=== PATIENT | male | born 1990 | race Caucasian/White ===

== ENCOUNTER 2017-04-03 04:55 | Emergency (ER) | payer MEDICAID ==
[~2017-04-03] VITALS: Ht 170.2 cm; Wt 118.3 kg
[~2017-04-03 04:55] MED LIST: HYDR-3240 PO; ONDA4TAB10 PO
[2017-04-03 05:00] VITALS: BP 141/91
[2017-04-03] MEDS ORDERED: PROM25SU34 RC (06:19)
[2017-04-03] MEDS ORDERED: HYDROcodone/APAP 5/325 TABLET PO ONE (06:30)
[2017-04-03] MEDS ORDERED: HYDROcodone/APAP 5/325 TABLET ONE (06:53)
[2017-04-03] MEDS ORDERED: METHYLNALTREXONE 12 MG/0.6 ML SQ ONE (08:30)
== END 2017-04-03 08:18 | disposition home or self-care (01) ==
LOC: ED 08:06
DX: S40.012A Contusion of left shoulder, initial encounter (principal); X58.XXXA Exposure to other specified factors, initial encounter; Y93.89 Activity, other specified; Y92.89 Other specified places as the place of occurrence of the external cause; Y99.8 Other external cause status
CPT/HCPCS: 99284

== ENCOUNTER 2017-04-03 23:55 | Emergency (ER) | payer MEDICAID ==
[~2017-04-03] VITALS: Ht 170.2 cm; Wt 117.9 kg
[~2017-04-03 23:55] MED LIST changes: +PROM25SU34 RC
[2017-04-04] VITALS: BP 140/90
[2017-04-04] MEDS ORDERED: HYDROcodone/APAP 5/325 TABLET ONE (01:14)
[2017-04-04] MEDS ORDERED: HYDROcodone/APAP 5/325 TABLET PO ONE (01:30)
== END 2017-04-04 01:44 | disposition home or self-care (01) ==
LOC: ED 04-04 01:09
DX: S46.012A Strain of muscle(s) and tendon(s) of the rotator cuff of left shoulder, initial encounter (principal); W01.0XXA Fall on same level from slipping, tripping and stumbling without subsequent striking against object, initial encounter; Y93.89 Activity, other specified; Y92.009 Unspecified place in unspecified non-institutional (private) residence as the place of occurrence of the external cause; Y99.8 Other external cause status; Z87.440 Personal history of urinary (tract) infections
CPT/HCPCS: 99282

== ENCOUNTER 2017-05-24 01:40 | Emergency (ER) | payer MEDICAID ==
[~2017-05-24] VITALS: Ht 170.2 cm; Wt 120.0 kg
[2017-05-24 01:41] VITALS: BP 147/77
[2017-05-24] MEDS ORDERED: OXYcodone/APAP 5/325MG TABLET PO ONE (03:00)
[2017-05-24] MEDS ORDERED: KETOROLAC 30 MG/1 ML IM ONE (03:00)
[2017-05-24] MEDS ORDERED: OXYcodone/APAP 5/325MG TABLET ONE (03:14)
[2017-05-24] MEDS ORDERED: KETOROLAC 30 MG/1 ML ONE (03:14)
== END 2017-05-24 03:27 | disposition home or self-care (01) ==
LOC: ED 03:19
DX: R68.84 Jaw pain (principal); K08.89 Other specified disorders of teeth and supporting structures; F17.220 Nicotine dependence, chewing tobacco, uncomplicated
CPT/HCPCS: 96372; 99283; J1885

== ENCOUNTER 2017-06-22 02:27 | Emergency (ER) | payer MEDICAID ==
[~2017-06-22] VITALS: Ht 170.2 cm; Wt 116.9 kg
[2017-06-22] MEDS ORDERED: HYDROmorphone 1 MG/ML, 1ML IM ONE (03:30)
[2017-06-22] MEDS ORDERED: ONDANSETRON ODT 4 MG PO ONE (03:30)
[2017-06-22] MEDS ORDERED: HYDROmorphone 1 MG/ML, 1ML ONE (03:45)
[2017-06-22] MEDS ORDERED: ONDANSETRON ODT 4 MG ONE (03:45)
[2017-06-22 03:50] LABS: ASPARTATE AMINO TRANSFERASE 43 U/L (15-37); BLOOD UREA NITROGEN 8 mg/dL (7-18)
[2017-06-22] MEDS ORDERED: DICYCLOMINE 10 MG/ML, 2ML IM ONE (04:30)
[2017-06-22 04:40] VITALS: BP 133/87
== END 2017-06-22 04:42 | disposition home or self-care (01) ==
LOC: ED 04:37
DX: R10.84 Generalized abdominal pain (principal); K43.9 Ventral hernia without obstruction or gangrene; R11.0 Nausea; R19.7 Diarrhea, unspecified; Z90.49 Acquired absence of other specified parts of digestive tract
CPT/HCPCS: 36415; 74020; 80053; 83690; 85025; 96372; 99285; J1170; Q0162

== ENCOUNTER 2017-06-27 00:30 | Emergency (ER) | payer MEDICAID ==
[~2017-06-27] VITALS: Ht 170.2 cm; Wt 117.6 kg
[2017-06-27] MEDS ORDERED: HYDR-3240 PO (01:30)
[2017-06-27] MEDS ORDERED: OXYcodone/APAP 5/325MG TABLET PO ONE (02:00)
[2017-06-27 02:01] LABS: ASPARTATE AMINO TRANSFERASE 25 U/L (15-37); BLOOD UREA NITROGEN 15 mg/dL (7-18)
[2017-06-27] MEDS ORDERED: OXYcodone/APAP 5/325MG TABLET ONE (02:17)
[2017-06-27 03:57] VITALS: BP 134/88
== END 2017-06-27 04:01 | disposition home or self-care (01) ==
LOC: ED 01:23
DX: G89.29 Other chronic pain (principal); R10.84 Generalized abdominal pain; Z90.49 Acquired absence of other specified parts of digestive tract
CPT/HCPCS: 36415; 74176; 80053; 81003; 83690; 85025; 99285

== ENCOUNTER 2017-08-10 04:02 | Emergency (ER) | payer MEDICAID ==
[~2017-08-10] VITALS: Ht 170.2 cm; Wt 113.7 kg
[2017-08-10] MEDS ORDERED: ONDANSETRON 2MG/ML, 2ML ONE ×4 (05:16→07:46)
[2017-08-10] MEDS ORDERED: MORPHINE SULFATE 4 MG/ML, 1ML ONE (05:16)
[2017-08-10] MEDS ORDERED: ONDANSETRON 2MG/ML, 2ML IVPush ONE ×2 (05:30→07:00)
[2017-08-10] MEDS ORDERED: SODIUM CHLORIDE 0.9% 1,000ML IVBOLUS ONE (05:30)
[2017-08-10] MEDS ORDERED: MORPHINE SULFATE 4 MG/ML, 1ML IVPush PRN (05:30)
[2017-08-10] MEDS ORDERED: SODIUM CHLORIDE FLUSH 10ML SYR IVF ONE (05:30)
[2017-08-10] MEDS ORDERED: FENTANYL PF 100 MCG/2ML ONE (05:37)
[2017-08-10 05:56] LABS: HEMATOCRIT 42.7 % (39.2-51.8); HEMOGLOBIN 14.4 g/dL (13.7-18.0); WHITE BLOOD COUNT 11.1 x10^3/uL (3.4-10)
[2017-08-10] MEDS ORDERED: FENTANYL PF 100 MCG/2ML IVPush ONE (06:00)
[2017-08-10 06:08] LABS: BLOOD UREA NITROGEN 19 mg/dL (7-18)
[2017-08-10] MEDS ORDERED: OMNIPAQUE 350 MG/ML, 150 ML BOTTLE ONE (06:35)
[2017-08-10] MEDS ORDERED: HYDROmorphone 1 MG/ML, 1ML IV ONE (07:30)
[2017-08-10] MEDS ORDERED: HYDROmorphone 1 MG/ML, 1ML ONE (07:46)
[2017-08-10 07:50] VITALS: BP 133/91
== END 2017-08-10 07:53 | disposition home or self-care (01) ==
LOC: ED 05:37
DX: G89.29 Other chronic pain (principal); R10.84 Generalized abdominal pain; Z90.49 Acquired absence of other specified parts of digestive tract
CPT/HCPCS: 36415; 74177; 80048; 81003; 82040; 83605; 85025; 87040; 96361; 96374; 96375; 96376; 99285; J1170; J2405; J3010; J7030; Q9967

== ENCOUNTER 2017-09-13 06:06 | Emergency (ER) | payer MEDICAID ==
[~2017-09-13] VITALS: Ht 170.2 cm; Wt 116.7 kg
[2017-09-13] MEDS ORDERED: SODIUM CHLORIDE 0.9% 1,000 ML IV ONE (06:25)
[2017-09-13] MEDS ORDERED: SODIUM CHLORIDE 0.9% 1,000ML IVBOLUS ONE (06:30)
[2017-09-13] MEDS ORDERED: SODIUM CHLORIDE FLUSH 10ML SYR IVF ONE (06:30)
[2017-09-13] MEDS ORDERED: ONDANSETRON 2MG/ML, 2ML IVPush ONE (06:30)
[2017-09-13 06:51] LABS: HEMATOCRIT 44.9 % (39.2-51.8); HEMOGLOBIN 15.3 g/dL (13.7-18.0); WHITE BLOOD COUNT 11.2 x10^3/uL (3.4-10)
[2017-09-13] MEDS ORDERED: HYDROmorphone 1 MG/ML, 1ML ONE ×2 (06:57→07:40)
[2017-09-13] MEDS ORDERED: ONDANSETRON 2MG/ML, 2ML ONE (06:58)
[2017-09-13 07:03] LABS: ASPARTATE AMINO TRANSFERASE 19 U/L (15-37); BLOOD UREA NITROGEN 15 mg/dL (7-18)
[2017-09-13] MEDS: HYDROmorphone 1 MG/ML, 1ML IVPush PRN ×2 (07:17→07:41)
[2017-09-13] MEDS ORDERED: OMNIPAQUE 350 MG/ML, 150 ML BOTTLE ONE (08:02)
[2017-09-13 08:34] VITALS: BP 13/67
== END 2017-09-13 08:36 | disposition home or self-care (01) ==
LOC: ED 07:59
DX: R10.12 Left upper quadrant pain (principal); R11.0 Nausea; S31.139D Puncture wound of abdominal wall without foreign body, unspecified quadrant without penetration into peritoneal cavity, subsequent encounter; X58.XXXD Exposure to other specified factors, subsequent encounter
CPT/HCPCS: 36415; 74177; 80053; 83605; 83690; 85025; 93005; 96361; 96374; 96375; 99285; J1170; J2405; J7030; Q9967

== ENCOUNTER 2017-09-18 04:24 | Emergency (ER) | payer MEDICAID ==
[~2017-09-18] VITALS: Ht 170.2 cm; Wt 115.0 kg
[2017-09-18 04:27] VITALS: BP 131/91
[2017-09-18] MEDS ORDERED: SODIUM CHLORIDE 0.9% 1,000 ML IV ONE (05:16)
[2017-09-18 05:19] LABS: PATH.CAST-FLAG NOT PRESENT; SPERM-FLAG NOT PRESENT; SRC-FLAG NOT PRESENT; XTAL-FLAG NOT PRESENT; YLC-FLAG NOT PRESENT
[2017-09-18] MEDS ORDERED: ONDANSETRON 2MG/ML, 2ML IVPush ONE (05:30)
[2017-09-18] MEDS ORDERED: SODIUM CHLORIDE 0.9% 1,000ML IVBOLUS ONE (05:30)
[2017-09-18 06:01] LABS: HEMATOCRIT 49.5 % (39.2-51.8); HEMOGLOBIN 16.6 g/dL (13.7-18.0); WHITE BLOOD COUNT 13.6 x10^3/uL (3.4-10)
[2017-09-18 06:03] LABS: BLOOD UREA NITROGEN 13 mg/dL (7-18)
[2017-09-18 06:07] LABS: ASPARTATE AMINO TRANSFERASE 22 U/L (15-37)
[2017-09-18] MEDS ORDERED: ONDANSETRON 2MG/ML, 2ML ONE (06:16)
[2017-09-18] MEDS ORDERED: HYDROmorphone 1 MG/ML, 1ML ONE ×2 (06:16→07:50)
[2017-09-18] MEDS: HYDROmorphone 1 MG/ML, 1ML IVPush PRN ×2 (06:26→07:56)
== END 2017-09-18 08:31 | disposition home or self-care (01) ==
LOC: ED 08:20
DX: R10.12 Left upper quadrant pain (principal); R10.32 Left lower quadrant pain
CPT/HCPCS: 36415; 80053; 81001; 83690; 85025; 96361; 96374; 96375; 96376; 99284; J1170; J2405; J7030

== ENCOUNTER 2017-09-22 07:43 | Emergency (ER) | payer MEDICAID ==
[~2017-09-22] VITALS: Ht 170.2 cm; Wt 116.0 kg
[2017-09-22] MEDS ORDERED: ONDANSETRON 2MG/ML, 2ML ONE (08:22)
[2017-09-22] MEDS ORDERED: morphine SULFATE 10 MG/ML, 1ML ONE (08:22)
[2017-09-22] MEDS ORDERED: SODIUM CHLORIDE 0.9% 1,000ML IVBOLUS ONE (08:30)
[2017-09-22] MEDS ORDERED: ONDANSETRON 2MG/ML, 2ML IVPush ONE (08:30)
[2017-09-22] MEDS ORDERED: SODIUM CHLORIDE FLUSH 10ML SYR IVF ONE (08:30)
[2017-09-22] MEDS ORDERED: MORPHINE SULFATE 4 MG/ML, 1ML IVPush PRN (08:30)
[2017-09-22 08:49] LABS: HEMATOCRIT 46.4 % (39.2-51.8); HEMOGLOBIN 15.6 g/dL (13.7-18.0); WHITE BLOOD COUNT 13.6 x10^3/uL (3.4-10)
[2017-09-22 09:01] LABS: BLOOD UREA NITROGEN 14 mg/dL (7-18)
[2017-09-22] MEDS ORDERED: DIPHENHYDRAMINE 50 MG/ML, 1ML ONE (09:16)
[2017-09-22] MEDS ORDERED: HYDROmorphone 1 MG/ML, 1ML ONE ×2 (09:16→10:25)
[2017-09-22] MEDS ORDERED: METOCLOPRAMIDE 5 MG/ML, 2ML ONE (09:16)
[2017-09-22 09:22] VITALS: BP 135/86
[2017-09-22] MEDS ORDERED: HYDROmorphone 1 MG/ML, 1ML IVPush ONE (09:30)
[2017-09-22] MEDS ORDERED: METOCLOPRAMIDE 5 MG/ML, 2ML IVPush ONE (09:30)
[2017-09-22] MEDS ORDERED: DIPHENHYDRAMINE 50 MG/ML, 1ML IVPush ONE (09:30)
== END 2017-09-22 10:20 | disposition home or self-care (01) ==
LOC: ED 09:17
DX: G89.29 Other chronic pain (principal); R10.84 Generalized abdominal pain; F11.20 Opioid dependence, uncomplicated
CPT/HCPCS: 36415; 80048; 82040; 83605; 85025; 96361; 96374; 96375; 99284; J1170; J1200; J2405; J2765; J7030

== ENCOUNTER 2019-12-30 00:41 | Emergency (ER) | payer MEDICAID ==
[2019-12-30] MEDS ORDERED: ONDANSETRON ODT 4 MG ONE (01:12)
[2019-12-30] MEDS ORDERED: OXYcodone/APAP 5/325MG TABLET ONE ×2 (01:12→01:38)
[2019-12-30 01:15] LABS: BASOPHILS # (AUTO) 0.06 x10^3/uL (0-0.1); BASOPHILS % (AUTO) 1 % (0-1); EOSINOPHILS % (AUTO) 1 % (1-7); LYMPHOCYTES # (AUTO) 3.56 x10^3/uL (1-3.4); LYMPHOCYTES % (AUTO) 28 % (22-44); MD NO; MEAN CORPUSCULAR HEMOGLOBIN 27.9 pg (27.5-34.5); MEAN CORPUSCULAR HGB CONC 33.3 g/dL (33.2-36.2); MEAN CORPUSCULAR VOLUME 83.7 fL (81-97); MEAN PLATELET VOLUME 8.4 fL (7.4-10.4); MONOCYTES # (AUTO) 1.02 x10^3/uL (0.2-0.8); MONOCYTES % (AUTO) 8 % (2-9); NEUTROPHILS # (AUTO) 7.76 x10^3/uL (1.8-6.8); NEUTROPHILS % (AUTO) 62 % (42-75); PLATELET COUNT 275 x10^3/uL (130-400); RED CELL DISTRIBUTION WIDTH 14.5 % (9.4-14.8)
[2019-12-30 01:25] LABS: ALANINE AMINOTRANSFERASE 41 U/L (12-78); ALBUMIN 3.3 g/dL (3.4-5.0); ANION GAP 9 mmol/L (5-15); CALCIUM 9.2 mg/dL (8.5-10.1); CHLORIDE 109 mmol/L (98-107); CREATININE 1.16 mg/dL (0.7-1.3)
--- NOTE | 2019-12-30 01:26 | NUR ---
Patient presents to ER c/o right quadrant abd pain. Patient states this is chronic pain which he takes Percocet 10/325 for. Lately his pain has not been controlled by his RX so he's been taking more. He informed his pain management doc about this and they did not change his RX. Tonight, patient does not have anymore meds and is in pain and feels like he may be starting to go through withdrawals. His RX cannot be filled for another 7 days. Patient is in NAD. Respirations even and unlabored.
[2019-12-30 01:28] LABS: ALKALINE PHOSPHATASE 64 U/L (45-117); BILIRUBIN,TOTAL 0.4 mg/dL (0.2-1.0); TOTAL PROTEIN 8.3 g/dL (6.4-8.2)
[2019-12-30] MEDS ORDERED: OXYcodone/APAP 5/325MG TABLET PO ONE ×2 (01:30→02:00)
[2019-12-30] MEDS ORDERED: ONDANSETRON ODT 4 MG PO ONE (01:30)
[2019-12-30 02:19] VITALS: BP 118/83
== END 2019-12-30 02:23 | disposition home or self-care (01) ==
LOC: ED 01:11
DX: R10.84 Generalized abdominal pain (principal); R73.9 Hyperglycemia, unspecified; F15.93 Other stimulant use, unspecified with withdrawal; Z90.49 Acquired absence of other specified parts of digestive tract
CPT/HCPCS: 36415; 80053; 83690; 85025; 99284; Q0162

== ENCOUNTER 2020-01-06 04:43 | Emergency (ER) | payer MEDICAID ==
[~2020-01-06] VITALS: Ht 170.2 cm; Wt 126.0 kg
[2020-01-06] MEDS ORDERED: MAALOX/HYOSCYAMINE/LIDOCAINE 45 ML BTL ONE (05:26)
[2020-01-06] MEDS ORDERED: ONDANSETRON 2MG/ML, 2ML ONE (05:26)
[2020-01-06] MEDS ORDERED: FAMOTIDINE 20 MG/2 ML ONE (05:26)
[2020-01-06] MEDS ORDERED: ONDANSETRON 2MG/ML, 2ML IVPush ONE (05:30)
[2020-01-06] MEDS ORDERED: MAALOX/HYOSCYAMINE/LIDOCAINE 45 ML BTL PO ONE (05:30)
[2020-01-06] MEDS ORDERED: FAMOTIDINE 20 MG/2 ML IV ONE (05:30)
[2020-01-06] MEDS ORDERED: SODIUM CHLORIDE 0.9% 1,000ML IVBOLUS ONE (05:30)
[2020-01-06 06:15] LABS: ALANINE AMINOTRANSFERASE 45 U/L (12-78); ALBUMIN 3.4 g/dL (3.4-5.0); ANION GAP 8 mmol/L (5-15); CALCIUM 9.2 mg/dL (8.5-10.1); CHLORIDE 110 mmol/L (98-107); CREATININE 1.17 mg/dL (0.7-1.3)
[2020-01-06 06:17] LABS: ALKALINE PHOSPHATASE 64 U/L (45-117); BILIRUBIN,TOTAL 0.4 mg/dL (0.2-1.0); TOTAL PROTEIN 8.3 g/dL (6.4-8.2)
[2020-01-06 06:23] LABS: BASOPHILS # (AUTO) 0.05 x10^3/uL (0-0.1); BASOPHILS % (AUTO) 1 % (0-1); EOSINOPHILS % (AUTO) 1 % (1-7); LYMPHOCYTES # (AUTO) 2.15 x10^3/uL (1-3.4); LYMPHOCYTES % (AUTO) 26 % (22-44); MD NO; MEAN CORPUSCULAR HGB CONC 33.6 g/dL (33.2-36.2); MEAN CORPUSCULAR VOLUME 83.3 fL (81-97); MEAN PLATELET VOLUME 8.8 fL (7.4-10.4); MONOCYTES % (AUTO) 15 % (2-9); NEUTROPHILS # (AUTO) 4.73 x10^3/uL (1.8-6.8); NEUTROPHILS % (AUTO) 57 % (42-75); PLATELET COUNT 249 x10^3/uL (130-400); RED BLOOD COUNT 5.59 x10^6/uL (4.38-5.82); RED CELL DISTRIBUTION WIDTH 14.5 % (9.4-14.8)
--- NOTE | 2020-01-06 06:35 | NUR ---
PT LYING IN BED, RESTLESS. STATES GI COCKTAIL ONLY HELPED FOR [address] 3P ADDRESSED.
[2020-01-06] MEDS ORDERED: HYDROmorphone 1 MG/ML, 1ML INJ IV ONE (07:30)
[2020-01-06] MEDS ORDERED: HYDROmorphone 1 MG/ML, 1ML INJ ONE (07:44)
[2020-01-06 07:57] VITALS: BP 127/84
--- NOTE | 2020-01-06 07:58 | NUR ---
PT MEDICATED PER JAN, WILL MONITOR THEM DC PER ORDER
== END 2020-01-06 08:57 | disposition home or self-care (01) ==
LOC: ED 06:18
DX: R10.84 Generalized abdominal pain (principal); B34.9 Viral infection, unspecified; R11.2 Nausea with vomiting, unspecified; R19.7 Diarrhea, unspecified; R00.0 Tachycardia, unspecified; Z90.49 Acquired absence of other specified parts of digestive tract
CPT/HCPCS: 36415; 74022; 80053; 85025; 93005; 96361; 96374; 96375; 99284; J1170; J2405; J3490; J7030

== ENCOUNTER 2020-01-26 00:05 | Emergency (ER) | payer MEDICAID ==
[~2020-01-26] VITALS: Ht 170.2 cm; Wt 128.0 kg
[2020-01-26] MEDS ORDERED: MORPHINE SULFATE 4 MG/ML, 1ML IVPush PRN (01:00)
[2020-01-26] MEDS ORDERED: SODIUM CHLORIDE FLUSH 10ML SYR IVF ONE (01:00)
[2020-01-26] MEDS ORDERED: ONDANSETRON 2MG/ML, 2ML IVPush ONE (01:00)
[2020-01-26] MEDS ORDERED: MORPHINE SULFATE 4 MG/ML, 1ML ONE (01:04)
[2020-01-26] MEDS ORDERED: ONDANSETRON 2MG/ML, 2ML ONE (01:04)
[2020-01-26 01:05] LABS: BASOPHILS # (AUTO) 0.05 x10^3/uL (0-0.1); BASOPHILS % (AUTO) 1 % (0-1); EOSINOPHILS # (AUTO) 0.23 x10^3/uL (0-0.4); EOSINOPHILS % (AUTO) 2 % (1-7); LYMPHOCYTES # (AUTO) 3.46 x10^3/uL (1-3.4); LYMPHOCYTES % (AUTO) 33 % (22-44); MD NO; MEAN CORPUSCULAR HEMOGLOBIN 28.3 pg (27.5-34.5); MEAN CORPUSCULAR HGB CONC 33.9 g/dL (33.2-36.2); MEAN CORPUSCULAR VOLUME 83.4 fL (81-97); MEAN PLATELET VOLUME 8.8 fL (7.4-10.4); MONOCYTES # (AUTO) 0.89 x10^3/uL (0.2-0.8); MONOCYTES % (AUTO) 9 % (2-9); NEUTROPHILS # (AUTO) 5.83 x10^3/uL (1.8-6.8); NEUTROPHILS % (AUTO) 56 % (42-75); PLATELET COUNT 242 x10^3/uL (130-400); RED BLOOD COUNT 4.83 x10^6/uL (4.38-5.82); RED CELL DISTRIBUTION WIDTH 14.4 % (9.4-14.8)
[2020-01-26 01:15] LABS: ALBUMIN 2.6 g/dL (3.4-5.0); ANION GAP 5 mmol/L (5-15); CALCIUM 8.4 mg/dL (8.5-10.1); CHLORIDE 107 mmol/L (98-107); CREATININE 1.14 mg/dL (0.7-1.3)
--- NOTE | 2020-01-26 01:17 | NUR ---
IV ACCESS ESTABLISHED. PT MEDICATED PER JAN AT THIS TIME. DR HERNDON NOTIFIED OF PT ALLERGY TO MORPHINE AND MEDICATIONS WERE CHANGED AT THIS TIME.
[2020-01-26] MEDS ORDERED: KETOROLAC 30 MG/1 ML ONE (01:21)
--- NOTE | 2020-01-26 01:23 | NUR ---
PT MEDICATED PER MAR FOR PAIN.
[2020-01-26] MEDS ORDERED: KETOROLAC 30 MG/1 ML IVPush ONE (01:30)
[2020-01-26] MEDS ORDERED: OMNIPAQUE 350 MG/ML, 100ML BOTTLE ONE (01:42)
--- NOTE | 2020-01-26 01:42 | NUR ---
pt to ct via [facility] at this time.
[2020-01-26] MEDS ORDERED: LIDOCAINE 1%, 10ML INFIL ONE (02:30)
[2020-01-26] MEDS ORDERED: LIDOCAINE-MPF 1%, 5ML ONE (03:19)
[2020-01-26] MEDS ORDERED: HYDROmorphone 1 MG/ML, 1ML INJ ONE ×2 (03:21→04:06)
[2020-01-26] MEDS ORDERED: HYDROmorphone 2 MG/ML, 1ML IVPush PRN (03:30)
--- NOTE | 2020-01-26 04:15 | NUR ---
PT MEDICATED PER MAR. PT D/C WITH D/C SUMMARY AND SCRIPTS AND VERBALIZES UNDERSTANDING OF [facility] AND F/U INSTRUCTIONS. PT AMBULATES TO REGISTRATION DESK WITH STEADY GAIT FOR D/C HOME WITH FRIEND. VSS AND UPDATED IN EMR.
[2020-01-26 04:16] VITALS: BP 128/81
[2020-01-26] MEDS ORDERED: HYDROmorphone 1 MG/ML, 1ML INJ IM ONE (04:30)
== END 2020-01-26 04:18 | disposition home or self-care (01) ==
LOC: ED 01:48
DX: K61.0 Anal abscess (principal); L02.31 Cutaneous abscess of buttock; L03.317 Cellulitis of buttock; Z90.49 Acquired absence of other specified parts of digestive tract
CPT/HCPCS: 36415; 46050; 72193; 80048; 82040; 85025; 96372; 96374; 96375; 99285; J1170; J1885; J2405; Q9967

== ENCOUNTER 2020-01-31 00:41 | Emergency (ER) | payer MEDICAID ==
[~2020-01-31] VITALS: Ht 170.2 cm; Wt 128.2 kg
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
[2020-01-31] MEDS ORDERED: HYDROmorphone 1 MG/ML, 1ML INJ ONE (01:27)
[2020-01-31] MEDS ORDERED: ONDANSETRON 2MG/ML, 2ML ONE (01:28)
[2020-01-31] MEDS ORDERED: SODIUM CHLORIDE 0.9% 1,000ML IVBOLUS ONE (01:30)
[2020-01-31] MEDS ORDERED: SODIUM CHLORIDE FLUSH 10ML SYR IVF ONE (01:30)
[2020-01-31] MEDS ORDERED: ONDANSETRON 2MG/ML, 2ML IVPush ONE (01:30)
[2020-01-31] MEDS ORDERED: HYDROmorphone 1 MG/ML, 1ML INJ IM ONE (01:30)
[2020-01-31 01:42] LABS: BASOPHILS # (AUTO) 0.06 x10^3/uL (0-0.1); BASOPHILS % (AUTO) 1 % (0-1); EOSINOPHILS # (AUTO) 0.22 x10^3/uL (0-0.4); EOSINOPHILS % (AUTO) 2 % (1-7); LYMPHOCYTES # (AUTO) 4.49 x10^3/uL (1-3.4); LYMPHOCYTES % (AUTO) 34 % (22-44); MD NO; MEAN CORPUSCULAR HEMOGLOBIN 28.2 pg (27.5-34.5); MEAN CORPUSCULAR HGB CONC 33.9 g/dL (33.2-36.2); MEAN CORPUSCULAR VOLUME 83.2 fL (81-97); MEAN PLATELET VOLUME 8.5 fL (7.4-10.4); MONOCYTES # (AUTO) 1.26 x10^3/uL (0.2-0.8); MONOCYTES % (AUTO) 10 % (2-9); NEUTROPHILS % (AUTO) 54 % (42-75); PLATELET COUNT 313 x10^3/uL (130-400); RED BLOOD COUNT 5.09 x10^6/uL (4.38-5.82); RED CELL DISTRIBUTION WIDTH 14.2 % (9.4-14.8)
[2020-01-31 01:50] LABS: ALANINE AMINOTRANSFERASE 34 U/L (12-78); ANION GAP 7 mmol/L (5-15); CALCIUM 8.9 mg/dL (8.5-10.1); CHLORIDE 103 mmol/L (98-107)
[2020-01-31 01:53] LABS: ALKALINE PHOSPHATASE 69 U/L (45-117); BILIRUBIN,TOTAL 0.2 mg/dL (0.2-1.0); CREATININE 0.97 mg/dL (0.7-1.3)
[2020-01-31] MEDS ORDERED: HYDROmorphone 1 MG/ML, 1ML INJ IV ONE (02:00)
[2020-01-31] MEDS ORDERED: KETOROLAC 30 MG/1 ML IVPush ONE (02:30)
--- NOTE | 2020-01-31 02:31 | NUR ---
PT REQUESTED ADDITIONAL PAIN MEDS, MD NOTIFIED. PT OFFERED TORADOL, PT REFUSED STATES "ONLY DILAUDID AND PERCOCET WORK FOR ME".
[2020-01-31 02:32] VITALS: BP 116/73
[2020-02-01] MEDS ORDERED: OXYC-307 PO (01:48)
== END 2020-01-31 02:46 | disposition home or self-care (01) ==
LOC: ED 02:08
DX: K61.1 Rectal abscess (principal); F11.23 Opioid dependence with withdrawal; R73.9 Hyperglycemia, unspecified; G89.29 Other chronic pain; Z90.49 Acquired absence of other specified parts of digestive tract
CPT/HCPCS: 36415; 72192; 80053; 83605; 84145; 85025; 87040; 96374; 96375; 99284; J1170; J2405; J7030

== ENCOUNTER 2020-02-01 00:34 | Emergency (ER) | payer MEDICAID ==
[~2020-02-01] VITALS: Ht 170.2 cm; Wt 127.5 kg
[2020-02-01] MEDS ORDERED: OXYC-307 PO (01:48)
--- NOTE | 2020-02-01 01:52 | NUR ---
Pt ambulatory to room. Pt reports being followed by pain management MD and is prescribed percocet for pain. Pt reports a recent abd abscess for which he took an increased number of percocet and is now out. Pt reports feeling withdrawal symptoms. Pt reports he his not due for his refill until 02/01. Pt reports other meds for weight loss, and sleeping. Call light in place. Report to primary RN Nicolas.
[2020-02-01] MEDS ORDERED: OXYcodone/APAP 5/325MG TABLET ONE ×2 (02:12→04:28)
[2020-02-01] MEDS ORDERED: OXYcodone/APAP 5/325MG TABLET PO ONE ×2 (02:30→04:30)
[2020-02-01 02:53] LABS: BASOPHILS # (AUTO) 0.11 x10^3/uL (0-0.1); BASOPHILS % (AUTO) 1 % (0-1); EOSINOPHILS # (AUTO) 0.25 x10^3/uL (0-0.4); EOSINOPHILS % (AUTO) 2 % (1-7); LYMPHOCYTES # (AUTO) 4.11 x10^3/uL (1-3.4); LYMPHOCYTES % (AUTO) 31 % (22-44); MD NO; MEAN CORPUSCULAR HGB CONC 33.2 g/dL (33.2-36.2); MEAN CORPUSCULAR VOLUME 84.1 fL (81-97); MEAN PLATELET VOLUME 8.2 fL (7.4-10.4); MONOCYTES # (AUTO) 1.11 x10^3/uL (0.2-0.8); MONOCYTES % (AUTO) 8 % (2-9); NEUTROPHILS # (AUTO) 7.61 x10^3/uL (1.8-6.8); NEUTROPHILS % (AUTO) 58 % (42-75); PLATELET COUNT 293 x10^3/uL (130-400); RED CELL DISTRIBUTION WIDTH 14.1 % (9.4-14.8)
[2020-02-01 03:02] LABS: ALBUMIN 2.9 g/dL (3.4-5.0); ANION GAP 6 mmol/L (5-15); CALCIUM 8.6 mg/dL (8.5-10.1); CHLORIDE 106 mmol/L (98-107); CREATININE 0.99 mg/dL (0.7-1.3)
[2020-02-01 03:04] LABS: TROPONIN I < 0.015 ng/mL (0.000-0.045)
[2020-02-01 04:42] VITALS: BP 116/77
== END 2020-02-01 04:46 | disposition home or self-care (01) ==
LOC: ED 04:10
DX: R10.84 Generalized abdominal pain (principal); R07.89 Other chest pain; G89.29 Other chronic pain; F11.23 Opioid dependence with withdrawal; R11.0 Nausea; R94.31 Abnormal electrocardiogram [ECG] [EKG]; R73.9 Hyperglycemia, unspecified; Z98.0 Intestinal bypass and anastomosis status; Z90.49 Acquired absence of other specified parts of digestive tract
CPT/HCPCS: 36415; 71045; 80048; 82040; 84484; 85025; 93005; 99285

== ENCOUNTER 2020-05-29 19:44 | Emergency (ER) | payer MEDICAID ==
[~2020-05-29] VITALS: Ht 170.2 cm; Wt 128.5 kg
[~2020-05-29 19:44] MED LIST changes: +OXYC-307 PO
[2020-05-29] MEDS ORDERED: ONDANSETRON ODT 4 MG ONE (19:54)
--- NOTE | 2020-05-29 19:57 | NUR ---
ZOFRAN GIVEN IN TRAIGE FOR N/V
[2020-05-29] MEDS ORDERED: ONDANSETRON ODT 4 MG PO ONE (20:00)
[2020-05-29] MEDS ORDERED: SODIUM CHLORIDE FLUSH 10ML SYR IVF ONE (20:00)
[2020-05-29] MEDS ORDERED: PROCHLORPERAZINE 5 MG/ML, 2ML ONE (20:25)
[2020-05-29] MEDS ORDERED: HYDROmorphone 1 MG/ML, 1ML INJ ONE ×3 (20:26→22:48)
[2020-05-29] MEDS: HYDROmorphone 2 MG/ML, 1ML IVPush PRN ×2 (20:29→21:11)
[2020-05-29] MEDS ORDERED: PROCHLORPERAZINE 5 MG/ML, 2ML IVPush ONE (20:30)
[2020-05-29 20:35] LABS: ALBUMIN 3.5 g/dL (3.4-5.0); ANION GAP 9 mmol/L (5-15); CALCIUM 9.9 mg/dL (8.5-10.1); CHLORIDE 104 mmol/L (98-107); CREATININE 1.08 mg/dL (0.7-1.3)
--- NOTE | 2020-05-29 20:35 | NUR ---
PIV PLACED. LABS DRAWN FROM PIV. PT MEDICATED PER ORDER.
[2020-05-29 20:41] LABS: ALANINE AMINOTRANSFERASE 61 U/L (12-78); ALKALINE PHOSPHATASE 82 U/L (45-117); BILIRUBIN,TOTAL 0.3 mg/dL (0.2-1.0); TOTAL PROTEIN 8.9 g/dL (6.4-8.2)
[2020-05-29] MEDS ORDERED: DIPHENHYDRAMINE 50 MG/ML, 1ML ONE (21:06)
--- NOTE | 2020-05-29 21:10 | NUR ---
in room to reassess pain. pt still c/o pain and now is feeling anxious. md made aware. verbal order for 25 mg benadryl iv recieved. pt medicated per order.
[2020-05-29 21:28] LABS: BASOPHILS # (AUTO) 0.21 x10^3/uL (0-0.1); BASOPHILS % (AUTO) 2 % (0-1); EOSINOPHILS # (AUTO) 0.15 x10^3/uL (0-0.4); EOSINOPHILS % (AUTO) 1 % (1-7); LYMPHOCYTES # (AUTO) 2.88 x10^3/uL (1-3.4); LYMPHOCYTES % (AUTO) 26 % (22-44); MD NO; MEAN CORPUSCULAR HEMOGLOBIN 27.6 pg (27.5-34.5); MEAN CORPUSCULAR HGB CONC 33.4 g/dL (33.2-36.2); MEAN CORPUSCULAR VOLUME 82.5 fL (81-97); MEAN PLATELET VOLUME 8.4 fL (7.4-10.4); MONOCYTES # (AUTO) 0.66 x10^3/uL (0.2-0.8); MONOCYTES % (AUTO) 6 % (2-9); NEUTROPHILS # (AUTO) 7.22 x10^3/uL (1.8-6.8); NEUTROPHILS % (AUTO) 65 % (42-75); PLATELET COUNT 225 x10^3/uL (130-400); RED BLOOD COUNT 5.35 x10^6/uL (4.38-5.82); RED CELL DISTRIBUTION WIDTH 13.8 % (9.4-14.8)
--- NOTE | 2020-05-29 21:33 | NUR ---
pt in room and given ua cup. pt advised of need for ua. pt states positive relief of pain at this time and pain is at a tolerable level
--- NOTE | 2020-05-29 22:00 | NUR ---
REPORT FROM MODE JORDAN. PT CARE RESPONSIBILITIES ASSUMED.
--- NOTE | 2020-05-29 22:22 | NUR ---
PT REMINDED AGAIN OF NEED FOR URINE SAMPLE. PT REQUESTING PAIN MEDICATION. DENIES ANY FURTHER NEEDS OR CONCERNS, CALL LIGHT IN REACH.
[2020-05-29] MEDS ORDERED: ONDANSETRON 2MG/ML, 2ML ONE (22:48)
[2020-05-29] MEDS ORDERED: ONDANSETRON 2MG/ML, 2ML IVPush ONE (23:00)
[2020-05-29] MEDS ORDERED: HYDROmorphone 2 MG/ML, 1ML IVPush PRN (23:00)
--- NOTE | 2020-05-29 23:01 | NUR ---
Pt report from Lauren ridley. This rn to assume care of pt. Awaiting md recheck. No immediate needs from pt.
[2020-05-29 23:02] VITALS: BP 130/79
[2020-05-29 23:27] LABS: MICROSCOPIC AUTO
--- NOTE | 2020-05-29 23:30 | NUR ---
All results back. Pt up for recheck.
--- NOTE | 2020-05-29 23:53 | NUR ---
REPORT OF PT FROM MODE CORREIA AND ASSUMING CARE OF PT AT THIS TIME.
== END 2020-05-29 23:59 | disposition home or self-care (01) ==
LOC: ED 22:09
DX: G89.29 Other chronic pain (principal); R10.11 Right upper quadrant pain; R11.2 Nausea with vomiting, unspecified; R10.31 Right lower quadrant pain; R73.9 Hyperglycemia, unspecified; R07.89 Other chest pain; R00.0 Tachycardia, unspecified; Z90.49 Acquired absence of other specified parts of digestive tract
CPT/HCPCS: 36415; 76700; 80053; 81001; 83690; 85025; 93005; 96374; 96375; 96376; 99285; J0780; J1170; J2405; Q0162

== ENCOUNTER 2020-05-31 22:29 | Inpatient (IN) | payer MEDICAID ==
[~2020-05-31] VITALS: Ht 170.2 cm; Wt 130.6 kg
--- NOTE | 2020-05-31 23:45 | NUR ---
assumed care of pt. pt presents c/o exacrbation of chronic abd. pain. pt was seen here 2 days ago for same. pt reports that he has RUQ and RLQ pain and that he has had multiple episodes of vomiting an diarrhea. pt reports that he sees a pain specialist for his chronic abd. pain and that he had an appointment scheduled for yesterday, but that it was cancelled by the provider. reports that he takes oxycodone for his pain but that he hasn't had any in about 10 hours because he "hasn't been able to keep anything down". no vomiting noted at this time. no family at bedside
[2020-05-31] MEDS ORDERED: HYDROmorphone 1 MG/ML, 1ML INJ ONE (23:55)
[2020-05-31] MEDS ORDERED: METOCLOPRAMIDE 5 MG/ML, 2ML ONE (23:56)
[2020-05-31] MEDS ORDERED: DIPHENHYDRAMINE 50 MG/ML, 1ML ONE (23:56)
[2020-06-01] MEDS ORDERED: SODIUM CHLORIDE 0.9% 1,000ML IVBOLUS ONE
[2020-06-01] MEDS ORDERED: METOCLOPRAMIDE 5 MG/ML, 2ML IVPush ONE
[2020-06-01] MEDS ORDERED: DIPHENHYDRAMINE 50 MG/ML, 1ML IVPush ONE
[2020-06-01 00:03] LABS: BASOPHILS # (AUTO) 0.06 x10^3/uL (0-0.1); BASOPHILS % (AUTO) 1 % (0-1); EOSINOPHILS # (AUTO) 0.19 x10^3/uL (0-0.4); EOSINOPHILS % (AUTO) 2 % (1-7); LYMPHOCYTES # (AUTO) 3.89 x10^3/uL (1-3.4); LYMPHOCYTES % (AUTO) 31 % (22-44); MD NO; MEAN CORPUSCULAR HEMOGLOBIN 27.4 pg (27.5-34.5); MEAN CORPUSCULAR HGB CONC 32.8 g/dL (33.2-36.2); MEAN CORPUSCULAR VOLUME 83.5 fL (81-97); MEAN PLATELET VOLUME 8.8 fL (7.4-10.4); MONOCYTES # (AUTO) 0.89 x10^3/uL (0.2-0.8); MONOCYTES % (AUTO) 7 % (2-9); NEUTROPHILS % (AUTO) 60 % (42-75); PLATELET COUNT 269 x10^3/uL (130-400); RED CELL DISTRIBUTION WIDTH 13.8 % (9.4-14.8)
[2020-06-01] MEDS: HYDROmorphone 2 MG/ML, 1ML IVPush PRN ×8 (00:07→22:20)
[2020-06-01 00:13] LABS: ALANINE AMINOTRANSFERASE 64 U/L (12-78); ALBUMIN 3.4 g/dL (3.4-5.0); ANION GAP 8 mmol/L (5-15); CALCIUM 9.2 mg/dL (8.5-10.1); CHLORIDE 106 mmol/L (98-107); CREATININE 1.03 mg/dL (0.7-1.3)
[2020-06-01 00:15] LABS: ALKALINE PHOSPHATASE 65 U/L (45-117); BILIRUBIN,TOTAL 0.3 mg/dL (0.2-1.0); TOTAL PROTEIN 8.6 g/dL (6.4-8.2)
--- NOTE | 2020-06-01 00:15 | NUR ---
pt has been medicated per order. pt to CT scan via gurney
[2020-06-01] MEDS ORDERED: OMNIPAQUE 350 MG/ML, 150 ML BOTTLE ONE (00:23)
--- NOTE | 2020-06-01 00:43 | NUR ---
report to Kavon COELLO for lunch
--- NOTE | 2020-06-01 00:48 | NUR ---
Break RN: ERP at bedside talking to patient for plan of care.
[2020-06-01] MEDS ORDERED: HYDROmorphone 1 MG/ML, 1ML INJ ONE (00:50)
--- NOTE | 2020-06-01 01:24 | NUR ---
NS infusion has completed. pt is aware that stool sample needed but has been unable to give sample. pt reports that nausea has resolved and that he has had some relief of pain after meds. updated on POC
--- NOTE | 2020-06-01 01:41 | NUR ---
pt to be admitted. pt aware. OK for pt to have clear liquids per Dr. Walker. water given per patient request. awaiting admit
--- NOTE | 2020-06-01 01:46 | NUR ---
med rec has been completed as much as possible. pt states that he is not sure of all of his meds and will contact family to get the information
--- NOTE | 2020-06-01 02:20 | NUR ---
awaiting hospitalist to bedside to discuss asmission and pain control. pt sitting up on gurney texting ordnance truck installation supervisor phone. denies nausea, no vomiting. pt has still not been able to provide stool sample
--- NOTE | 2020-06-01 02:45 | NUR ---
hospitalist at bedside for eval for admission
[2020-06-01] MEDS: ENOXAPARIN 40 MG/0.4 ML SQ SCH (03:00)
[2020-06-01] MEDS ORDERED: ZOLPIDEM 5MG TABLET PO PRN (03:00)
[2020-06-01] MEDS ORDERED: GUAIFENESIN/DM 200-20MG, 10ML UDC PO PRN (03:00)
[2020-06-01] MEDS ORDERED: ACETAMINOPHEN 325 MG TABLET PO PRN (03:00)
[2020-06-01] MEDS ORDERED: hydrALAzine 20 MG/ML, 1ML IVPush PRN (03:00)
[2020-06-01] MEDS ORDERED: DOCUSATE 100 MG CAPSULE PO PRN (03:00)
[2020-06-01] MEDS ORDERED: ASA/APAP/ CAFFEINE TABLET PO PRN (03:00)
--- NOTE | 2020-06-01 03:21 | NUR ---
report to Mona COELLO
--- NOTE | 2020-06-01 03:27 | NUR ---
pt to floor via WC with transport
[2020-06-01 03:52] VITALS: BP 120/82
[2020-06-01] MEDS: LACTATED RINGERS 1,000 ML IV SCH ×3 (04:14→20:31)
[2020-06-01] MEDS: OXYcodone/APAP 10/325MG TABLET PO PRN ×3 (05:15→20:36)
[2020-06-01 06:38] LABS: CLOSTRIDIUM DIFFICILE ANTIGEN NEGATIVE; CLOSTRIDIUM DIFFICILE TOXIN NEGATIVE (Negative)
[2020-06-01 07:35] VITALS: BP 131/87
[2020-06-01] MEDS: FAMOTIDINE 20 MG/2 ML IVPush SCH ×2 (07:39→20:30)
[2020-06-01 13:54] VITALS: BP 116/76
[2020-06-01] MEDS: ONDANSETRON 2MG/ML, 2ML IVPush PRN (15:13)
[2020-06-01 18:44] VITALS: BP 169/91
[2020-06-02] MEDS: ONDANSETRON 2MG/ML, 2ML IVPush PRN (00:01)
[2020-06-02 00:56] VITALS: BP 131/85
[2020-06-02] MEDS: HYDROmorphone 2 MG/ML, 1ML IVPush PRN ×5 (01:22→21:25)
[2020-06-02] MEDS: ENOXAPARIN 40 MG/0.4 ML SQ SCH ×2 (03:00→03:11)
[2020-06-02] MEDS: LACTATED RINGERS 1,000 ML IV SCH ×4 (03:11→23:26)
[2020-06-02] MEDS: OXYcodone/APAP 10/325MG TABLET PO PRN ×4 (03:11→23:25)
[2020-06-02 05:26] LABS: BASOPHILS # (AUTO) 0.08 x10^3/uL (0-0.1); BASOPHILS % (AUTO) 1 % (0-1); EOSINOPHILS # (AUTO) 0.35 x10^3/uL (0-0.4); EOSINOPHILS % (AUTO) 3 % (1-7); LYMPHOCYTES # (AUTO) 3.95 x10^3/uL (1-3.4); LYMPHOCYTES % (AUTO) 30 % (22-44); MD NO; MEAN CORPUSCULAR HEMOGLOBIN 27.5 pg (27.5-34.5); MEAN CORPUSCULAR VOLUME 83.4 fL (81-97); MEAN PLATELET VOLUME 8.5 fL (7.4-10.4); MONOCYTES # (AUTO) 0.91 x10^3/uL (0.2-0.8); MONOCYTES % (AUTO) 7 % (2-9); NEUTROPHILS # (AUTO) 7.75 x10^3/uL (1.8-6.8); NEUTROPHILS % (AUTO) 59 % (42-75); PLATELET COUNT 227 x10^3/uL (130-400); RED BLOOD COUNT 5.03 x10^6/uL (4.38-5.82); RED CELL DISTRIBUTION WIDTH 13.8 % (9.4-14.8)
[2020-06-02 05:40] LABS: ANION GAP 8 mmol/L (5-15); CALCIUM 8.9 mg/dL (8.5-10.1); CHLORIDE 104 mmol/L (98-107); CREATININE 0.83 mg/dL (0.7-1.3)
[2020-06-02] MEDS: FAMOTIDINE 20 MG/2 ML IVPush SCH ×2 (08:26→21:24)
[2020-06-02 08:50] VITALS: BP 125/88
[2020-06-02 14:35] VITALS: BP 128/87
[2020-06-02 21:45] VITALS: BP 137/88
[2020-06-03] MEDS: HYDROmorphone 2 MG/ML, 1ML IVPush PRN ×5 (00:36→14:22)
[2020-06-03] MEDS: ENOXAPARIN 40 MG/0.4 ML SQ SCH ×2 (03:47→09:25)
[2020-06-03] MEDS: OXYcodone/APAP 10/325MG TABLET PO PRN ×2 (05:54→12:28)
[2020-06-03 07:10] VITALS: BP 127/85
[2020-06-03] MEDS: FAMOTIDINE 20 MG/2 ML IVPush SCH (08:40)
[2020-06-03] MEDS: LACTATED RINGERS 1,000 ML IV SCH ×2 (08:41→11:11)
[2020-06-03 13:48] VITALS: BP 137/81
[2020-06-03 15:21] LABS: BASOPHILS # (AUTO) 0.04 x10^3/uL (0-0.1); BASOPHILS % (AUTO) 1 % (0-1); EOSINOPHILS # (AUTO) 0.27 x10^3/uL (0-0.4); EOSINOPHILS % (AUTO) 3 % (1-7); LYMPHOCYTES # (AUTO) 2.77 x10^3/uL (1-3.4); LYMPHOCYTES % (AUTO) 31 % (22-44); MD NO; MEAN CORPUSCULAR HEMOGLOBIN 27.5 pg (27.5-34.5); MEAN CORPUSCULAR HGB CONC 32.7 g/dL (33.2-36.2); MEAN CORPUSCULAR VOLUME 84.1 fL (81-97); MEAN PLATELET VOLUME 8.3 fL (7.4-10.4); MONOCYTES % (AUTO) 8 % (2-9); NEUTROPHILS # (AUTO) 5.07 x10^3/uL (1.8-6.8); NEUTROPHILS % (AUTO) 57 % (42-75); PLATELET COUNT 239 x10^3/uL (130-400); RED BLOOD COUNT 5.07 x10^6/uL (4.38-5.82); RED CELL DISTRIBUTION WIDTH 13.9 % (9.4-14.8)
[2020-06-03 15:24] LABS: ALANINE AMINOTRANSFERASE 71 U/L (12-78); ALBUMIN 3.2 g/dL (3.4-5.0); ANION GAP 5 mmol/L (5-15); CALCIUM 8.9 mg/dL (8.5-10.1); CHLORIDE 106 mmol/L (98-107); CREATININE 0.95 mg/dL (0.7-1.3)
[2020-06-03 15:26] LABS: ALKALINE PHOSPHATASE 62 U/L (45-117); BILIRUBIN,TOTAL 0.4 mg/dL (0.2-1.0); TOTAL PROTEIN 7.5 g/dL (6.4-8.2)
== END 2020-06-03 18:14 | disposition home or self-care (01) | DRG 389 ==
LOC: ED 23:27 → EDIP 06-01 01:43 → 3N 06-01 03:29
PROVIDERS: ADMIT Internal Medicine; ATTEND Internal Medicine
DX: K56.0 Paralytic ileus (principal); K57.92 Diverticulitis of intestine, part unspecified, without perforation or abscess without bleeding; Z68.41 Body mass index [BMI] 40.0-44.9, adult; D72.829 Elevated white blood cell count, unspecified; E66.01 Morbid (severe) obesity due to excess calories; E74.39 Other disorders of intestinal carbohydrate absorption; E86.0 Dehydration; G89.29 Other chronic pain; K76.0 Fatty (change of) liver, not elsewhere classified; K21.9 Gastro-esophageal reflux disease without esophagitis; Z90.49 Acquired absence of other specified parts of digestive tract; Z79.899 Other long term (current) drug therapy; Z88.6 Allergy status to analgesic agent
CPT/HCPCS: 36415; 96361; 96374; 96375; 99285; J3490; 74177; 80048; 80053; 83690; 85025; 87324; 93005; G0378; J1170; J1650; J2405; Q9967; J1200; J2765; J7030; J7120

== ENCOUNTER 2020-06-21 11:25 | Inpatient (IN) | payer MEDICAID ==
[~2020-06-21] VITALS: Ht 170.2 cm; Wt 126.3 kg
--- NOTE | 2020-06-21 12:14 | NUR ---
LIVESTOCK HAULIER: PT IN BATHROOM WHEN CALLED FROM [facility]
--- NOTE | 2020-06-21 12:16 | NUR ---
CLAIMS ADJUDICATOR: PT TO ROOM FROM LOBBY
[2020-06-21 12:27] LABS: BASOPHILS # (AUTO) 0.09 x10^3/uL (0-0.1); BASOPHILS % (AUTO) 1 % (0-1); EOSINOPHILS # (AUTO) 0.18 x10^3/uL (0-0.4); EOSINOPHILS % (AUTO) 2 % (1-7); LYMPHOCYTES # (AUTO) 2.66 x10^3/uL (1-3.4); LYMPHOCYTES % (AUTO) 24 % (22-44); MD NO; MEAN CORPUSCULAR HEMOGLOBIN 27.4 pg (27.5-34.5); MEAN CORPUSCULAR HGB CONC 33.2 g/dL (33.2-36.2); MEAN CORPUSCULAR VOLUME 82.4 fL (81-97); MONOCYTES % (AUTO) 6 % (2-9); NEUTROPHILS # (AUTO) 7.48 x10^3/uL (1.8-6.8); NEUTROPHILS % (AUTO) 67 % (42-75); PLATELET COUNT 238 x10^3/uL (130-400); RED BLOOD COUNT 5.65 x10^6/uL (4.38-5.82); RED CELL DISTRIBUTION WIDTH 14.2 % (9.4-14.8)
[2020-06-21 12:39] LABS: ALANINE AMINOTRANSFERASE 69 U/L (12-78); ALBUMIN 3.6 g/dL (3.4-5.0); ANION GAP 9 mmol/L (5-15); CALCIUM 9.4 mg/dL (8.5-10.1); CHLORIDE 104 mmol/L (98-107); CREATININE 1.01 mg/dL (0.7-1.3)
[2020-06-21 12:43] LABS: ALKALINE PHOSPHATASE 65 U/L (45-117); BILIRUBIN,TOTAL 0.5 mg/dL (0.2-1.0); TOTAL PROTEIN 8.3 g/dL (6.4-8.2)
[2020-06-21] MEDS ORDERED: SODIUM CHLORIDE FLUSH 10ML SYR IVF ONE (13:00)
[2020-06-21] MEDS ORDERED: ONDANSETRON 2MG/ML, 2ML IVPush ONE ×2 (13:00→15:30)
[2020-06-21] MEDS ORDERED: ONDANSETRON 2MG/ML, 2ML ONE ×2 (13:17→15:38)
[2020-06-21] MEDS ORDERED: HYDROmorphone 2 MG/ML, 1ML ONE ×3 (13:17→20:33)
[2020-06-21] MEDS: HYDROmorphone 2 MG/ML, 1ML IVPush PRN ×2 (13:19→14:16)
--- NOTE | 2020-06-21 14:00 | NUR ---
ENEMA GIVEN BY MODE MORATAYA. PT ONLY ABLE TO TOLERATE 500 ML AT THIS TIME. WILL CONTINUE TO MONITOR AND GIVE OTHER HALF IF NECCESSARY
[2020-06-21] MEDS ORDERED: HYDROmorphone 1 MG/ML, 1ML INJ ONE (14:14)
--- NOTE | 2020-06-21 14:14 | NUR ---
PT STATES HE WAS PRODUCTIVE WITH ENEMA, BUT STILL REMAINS IN PAIN. WILL MEDICATE PER EMAR.
[2020-06-21] MEDS ORDERED: HYDROmorphone 2 MG/ML, 1ML IVPush PRN (15:30)
--- NOTE | 2020-06-21 16:08 | NUR ---
PT RETURNED FROM CT AT THIS TIME
[2020-06-21] MEDS ORDERED: OMNIPAQUE 350 MG/ML, 100ML BOTTLE ONE (16:12)
[2020-06-21] MEDS ORDERED: BISACODYL 10 MG SUPP PR PRN (18:00)
[2020-06-21] MEDS ORDERED: POLYETHYLENE GLYCOL 17 GM PACKET PO PRN (18:00)
[2020-06-21] MEDS ORDERED: ACETAMINOPHEN 325 MG TABLET PO PRN (18:00)
[2020-06-21] MEDS ORDERED: PROMETHAZINE 25 MG/ML, 1ML IM PRN (18:00)
[2020-06-21] MEDS: FAMOTIDINE 20 MG/2 ML IVPush SCH (20:38)
[2020-06-21] MEDS: HYDROmorphone 1 MG/ML, 1ML INJ IVPush PRN (20:38)
[2020-06-21] MEDS ORDERED: excedrin PO (20:44)
[2020-06-21] MEDS ORDERED: [UNRECOGNIZED DRUG - OTHER] (20:44)
[2020-06-21 22:22] VITALS: BP 133/85
[2020-06-21] MEDS: OXYcodone IR 5MG TABLET PO PRN (23:12)
[2020-06-21] MEDS ORDERED: KETOROLAC 30 MG/1 ML IVPush ONE (23:30)
[2020-06-22] MEDS ORDERED: DIPHENHYDRAMINE 50 MG/ML, 1ML IVPush ONE (00:30)
[2020-06-22] MEDS ORDERED: DICYCLOMINE 10 MG/ML, 2ML IM ONE (00:30)
[2020-06-22] MEDS ORDERED: METOCLOPRAMIDE 5 MG/ML, 2ML IVPush ONE (00:30)
[2020-06-22] MEDS ORDERED: METHYLNALTREXONE 12 MG/0.6 ML SYR SQ ONE (00:30)
[2020-06-22 01:07] VITALS: BP 120/74
[2020-06-22] MEDS ORDERED: HYDROmorphone 2 MG/ML, 1ML ONE ×3 (02:07→17:37)
[2020-06-22] MEDS: HYDROmorphone 1 MG/ML, 1ML INJ IVPush PRN ×3 (02:13→17:48)
[2020-06-22 04:30] LABS: ANION GAP 9 mmol/L (5-15); CHLORIDE 108 mmol/L (98-107)
[2020-06-22 06:45] LABS: BASOPHILS # (AUTO) 0.06 x10^3/uL (0-0.1); BASOPHILS % (AUTO) 1 % (0-1); EOSINOPHILS # (AUTO) 0.29 x10^3/uL (0-0.4); EOSINOPHILS % (AUTO) 2 % (1-7); LYMPHOCYTES # (AUTO) 4.05 x10^3/uL (1-3.4); LYMPHOCYTES % (AUTO) 34 % (22-44); MD NO; MEAN CORPUSCULAR HEMOGLOBIN 27.5 pg (27.5-34.5); MEAN CORPUSCULAR HGB CONC 32.7 g/dL (33.2-36.2); MEAN CORPUSCULAR VOLUME 83.9 fL (81-97); MEAN PLATELET VOLUME 8.4 fL (7.4-10.4); MONOCYTES % (AUTO) 8 % (2-9); NEUTROPHILS # (AUTO) 6.63 x10^3/uL (1.8-6.8); NEUTROPHILS % (AUTO) 55 % (42-75); PLATELET COUNT 221 x10^3/uL (130-400); RED BLOOD COUNT 5.24 x10^6/uL (4.38-5.82); RED CELL DISTRIBUTION WIDTH 13.9 % (9.4-14.8)
[2020-06-22] MEDS: SENNA/DOCUSATE TABLET PO SCH (09:06)
[2020-06-22] MEDS: METOCLOPRAMIDE 5 MG/ML, 2ML IVPush PRN ×2 (09:07→17:08)
[2020-06-22] MEDS: FAMOTIDINE 20 MG/2 ML IVPush SCH ×2 (09:07→21:31)
[2020-06-22 10:20] VITALS: BP 123/80
[2020-06-22] MEDS ORDERED: GLUCAGON 1 MG IM PRN (12:30)
[2020-06-22] MEDS ORDERED: DEXTROSE 4 GM TAB.CHEW PO PRN (12:30)
[2020-06-22] MEDS ORDERED: DEXTROSE 50%, 50ML SYRINGE IVPush PRN (12:30)
[2020-06-22] MEDS: CEFTRIAXONE PMX 1GM/50ML 50 ML IV SCH (12:59)
[2020-06-22 13:34] VITALS: BP 114/73
[2020-06-22] MEDS: METRONIDAZOLE PMX 500MG/100ML 100 ML IV SCH ×2 (13:41→21:32)
[2020-06-22] MEDS: metFORMIN 500 MG TABLET PO SCH (17:01)
[2020-06-22] MEDS: OXYcodone IR 5MG TABLET PO PRN ×2 (17:01→23:07)
[2020-06-22] MEDS: INSULIN LISPRO 100 UNITS/ML, PEN SQ-INSULIN SCH ×2 (17:03→20:44)
[2020-06-22 18:58] VITALS: BP 117/79
[2020-06-22] MEDS: SODIUM CHLORIDE FLUSH 10ML SYR IVF SCH (21:32)
[2020-06-23] MEDS ORDERED: HYDROmorphone 2 MG/ML, 1ML ONE (00:47)
[2020-06-23] MEDS: HYDROmorphone 2 MG/ML, 1ML IVPush PRN ×4 (00:53→20:34)
[2020-06-23 00:56] VITALS: BP 119/79
[2020-06-23] MEDS: METRONIDAZOLE PMX 500MG/100ML 100 ML IV SCH ×3 (05:26→21:39)
[2020-06-23] MEDS: OXYcodone IR 5MG TABLET PO PRN ×3 (05:26→17:49)
[2020-06-23 05:41] LABS: BASOPHILS # (AUTO) 0.13 x10^3/uL (0-0.1); BASOPHILS % (AUTO) 1 % (0-1); EOSINOPHILS # (AUTO) 0.25 x10^3/uL (0-0.4); EOSINOPHILS % (AUTO) 2 % (1-7); LYMPHOCYTES # (AUTO) 3.88 x10^3/uL (1-3.4); LYMPHOCYTES % (AUTO) 32 % (22-44); MD NO; MEAN CORPUSCULAR HEMOGLOBIN 27.1 pg (27.5-34.5); MEAN CORPUSCULAR HGB CONC 31.9 g/dL (33.2-36.2); MEAN CORPUSCULAR VOLUME 85.2 fL (81-97); MEAN PLATELET VOLUME 8.8 fL (7.4-10.4); MONOCYTES % (AUTO) 7 % (2-9); NEUTROPHILS # (AUTO) 7.16 x10^3/uL (1.8-6.8); NEUTROPHILS % (AUTO) 58 % (42-75); PLATELET COUNT 226 x10^3/uL (130-400); RED CELL DISTRIBUTION WIDTH 13.5 % (9.4-14.8)
[2020-06-23 05:43] LABS: ANION GAP 8 mmol/L (5-15); CALCIUM 9.1 mg/dL (8.5-10.1); CHLORIDE 102 mmol/L (98-107)
[2020-06-23 05:45] LABS: CREATININE 0.98 mg/dL (0.7-1.3)
[2020-06-23] MEDS: INSULIN LISPRO 100 UNITS/ML, PEN SQ-INSULIN SCH ×4 (07:00→20:48)
[2020-06-23] MEDS: SENNA/DOCUSATE TABLET PO SCH (07:52)
[2020-06-23] MEDS: FAMOTIDINE 20 MG/2 ML IVPush SCH ×2 (07:52→20:34)
[2020-06-23] MEDS: SODIUM CHLORIDE FLUSH 10ML SYR IVF SCH ×2 (07:53→20:35)
[2020-06-23 09:59] VITALS: BP 101/67
[2020-06-23] MEDS: CEFTRIAXONE PMX 1GM/50ML 50 ML IV SCH (11:38)
[2020-06-23] MEDS: ONDANSETRON 2MG/ML, 2ML IVPush PRN (15:52)
[2020-06-23 15:59] VITALS: BP 114/77
[2020-06-23] MEDS ORDERED: POTASSIUM CHLORIDE 20 MEQ TAB.ER.PRT PO ONE (17:00)
[2020-06-23] MEDS: metFORMIN 500 MG TABLET PO SCH (17:49)
[2020-06-23 20:30] VITALS: BP 126/79
[2020-06-23] MEDS: METOCLOPRAMIDE 5 MG/ML, 2ML IVPush PRN (20:35)
[2020-06-23] MEDS: LACTOBACILLUS CHEW TABLET PO SCH (20:42)
[2020-06-23 22:57] LABS: CLOSTRIDIUM DIFFICILE ANTIGEN NEGATIVE; CLOSTRIDIUM DIFFICILE TOXIN NEGATIVE (Negative)
[2020-06-24 02:26] VITALS: BP 116/77
[2020-06-24] MEDS: HYDROmorphone 2 MG/ML, 1ML IVPush PRN ×3 (04:46→19:42)
[2020-06-24 05:29] LABS: BASOPHILS # (AUTO) 0.08 x10^3/uL (0-0.1); BASOPHILS % (AUTO) 1 % (0-1); EOSINOPHILS # (AUTO) 0.27 x10^3/uL (0-0.4); EOSINOPHILS % (AUTO) 3 % (1-7); LYMPHOCYTES # (AUTO) 2.94 x10^3/uL (1-3.4); LYMPHOCYTES % (AUTO) 29 % (22-44); MD NO; MEAN CORPUSCULAR HEMOGLOBIN 27.7 pg (27.5-34.5); MEAN CORPUSCULAR HGB CONC 33.2 g/dL (33.2-36.2); MEAN CORPUSCULAR VOLUME 83.3 fL (81-97); MEAN PLATELET VOLUME 8.4 fL (7.4-10.4); MONOCYTES # (AUTO) 0.84 x10^3/uL (0.2-0.8); MONOCYTES % (AUTO) 8 % (2-9); NEUTROPHILS # (AUTO) 6.17 x10^3/uL (1.8-6.8); NEUTROPHILS % (AUTO) 60 % (42-75); PLATELET COUNT 233 x10^3/uL (130-400); RED BLOOD COUNT 5.37 x10^6/uL (4.38-5.82); RED CELL DISTRIBUTION WIDTH 13.6 % (9.4-14.8)
[2020-06-24 05:38] LABS: ANION GAP 8 mmol/L (5-15); CALCIUM 8.8 mg/dL (8.5-10.1); CHLORIDE 105 mmol/L (98-107)
[2020-06-24 05:40] LABS: ALANINE AMINOTRANSFERASE 76 U/L (12-78); ALKALINE PHOSPHATASE 54 U/L (45-117); BILIRUBIN,TOTAL 0.6 mg/dL (0.2-1.0); CREATININE 0.95 mg/dL (0.7-1.3); TOTAL PROTEIN 7.5 g/dL (6.4-8.2)
[2020-06-24] MEDS: METRONIDAZOLE PMX 500MG/100ML 100 ML IV SCH ×3 (05:48→23:28)
[2020-06-24] MEDS: OXYcodone IR 5MG TABLET PO PRN ×4 (05:51→23:28)
[2020-06-24] MEDS: INSULIN LISPRO 100 UNITS/ML, PEN SQ-INSULIN SCH ×4 (07:00→21:52)
[2020-06-24 07:45] VITALS: BP 118/75
[2020-06-24 07:55] VITALS: BP 108/72
[2020-06-24] MEDS: FAMOTIDINE 20 MG/2 ML IVPush SCH (08:30)
[2020-06-24] MEDS: ONDANSETRON 2MG/ML, 2ML IVPush PRN (08:30)
[2020-06-24] MEDS: LACTOBACILLUS CHEW TABLET PO SCH ×3 (08:31→19:42)
[2020-06-24] MEDS: SENNA/DOCUSATE TABLET PO SCH (08:31)
[2020-06-24] MEDS: SODIUM CHLORIDE FLUSH 10ML SYR IVF SCH ×2 (09:00→19:42)
[2020-06-24] MEDS: METOCLOPRAMIDE 5 MG/ML, 2ML IVPush PRN ×2 (12:43→19:42)
[2020-06-24] MEDS: CEFTRIAXONE PMX 1GM/50ML 50 ML IV SCH (12:43)
[2020-06-24 14:25] VITALS: BP 120/83
[2020-06-24] MEDS: metFORMIN 500 MG TABLET PO SCH (17:18)
[2020-06-24 19:29] VITALS: BP 108/71
[2020-06-24] MEDS: FAMOTIDINE 20 MG TABLET PO SCH (19:42)
[2020-06-25 01:01] VITALS: BP 112/71
[2020-06-25] MEDS: METOCLOPRAMIDE 5 MG/ML, 2ML IVPush PRN ×2 (01:47→08:57)
[2020-06-25] MEDS: HYDROmorphone 2 MG/ML, 1ML IVPush PRN ×5 (01:47→23:56)
[2020-06-25 05:26] LABS: BASOPHILS # (AUTO) 0.06 x10^3/uL (0-0.1); BASOPHILS % (AUTO) 1 % (0-1); EOSINOPHILS # (AUTO) 0.32 x10^3/uL (0-0.4); EOSINOPHILS % (AUTO) 3 % (1-7); LYMPHOCYTES # (AUTO) 3.95 x10^3/uL (1-3.4); LYMPHOCYTES % (AUTO) 35 % (22-44); MD NO; MEAN CORPUSCULAR HEMOGLOBIN 27.7 pg (27.5-34.5); MEAN CORPUSCULAR HGB CONC 33.1 g/dL (33.2-36.2); MEAN CORPUSCULAR VOLUME 83.6 fL (81-97); MEAN PLATELET VOLUME 8.6 fL (7.4-10.4); MONOCYTES # (AUTO) 0.97 x10^3/uL (0.2-0.8); MONOCYTES % (AUTO) 9 % (2-9); NEUTROPHILS # (AUTO) 5.96 x10^3/uL (1.8-6.8); NEUTROPHILS % (AUTO) 53 % (42-75); PLATELET COUNT 234 x10^3/uL (130-400); RED BLOOD COUNT 5.24 x10^6/uL (4.38-5.82); RED CELL DISTRIBUTION WIDTH 13.6 % (9.4-14.8)
[2020-06-25] MEDS: OXYcodone IR 5MG TABLET PO PRN ×3 (05:30→18:55)
[2020-06-25 05:42] LABS: CHLORIDE 106 mmol/L (98-107)
[2020-06-25 05:47] LABS: CALCIUM 9.1 mg/dL (8.5-10.1); CREATININE 1.05 mg/dL (0.7-1.3)
[2020-06-25 06:21] LABS: ANION GAP 8 mmol/L (5-15)
[2020-06-25] MEDS: ONDANSETRON 2MG/ML, 2ML IVPush SCH ×3 (06:25→16:00)
[2020-06-25] MEDS: METRONIDAZOLE PMX 500MG/100ML 100 ML IV SCH ×3 (06:25→23:01)
[2020-06-25] MEDS: SODIUM CHLORIDE FLUSH 10ML SYR IVF SCH ×2 (07:33→21:09)
[2020-06-25 07:48] VITALS: BP 100/68
[2020-06-25] MEDS: INSULIN LISPRO 100 UNITS/ML, PEN SQ-INSULIN SCH ×4 (08:23→21:09)
[2020-06-25] MEDS: LACTOBACILLUS CHEW TABLET PO SCH ×3 (09:23→21:09)
[2020-06-25] MEDS: FAMOTIDINE 20 MG TABLET PO SCH ×2 (09:23→21:09)
[2020-06-25] MEDS: CEFTRIAXONE PMX 1GM/50ML 50 ML IV SCH (11:50)
[2020-06-25 14:00] VITALS: BP 106/71
[2020-06-25] MEDS: metFORMIN 500 MG TABLET PO SCH (17:02)
[2020-06-25 19:26] VITALS: BP 127/81
[2020-06-26 00:50] VITALS: BP 135/84
[2020-06-26 05:20] LABS: BASOPHILS # (AUTO) 0.07 x10^3/uL (0-0.1); BASOPHILS % (AUTO) 1 % (0-1); EOSINOPHILS # (AUTO) 0.41 x10^3/uL (0-0.4); EOSINOPHILS % (AUTO) 4 % (1-7); LYMPHOCYTES # (AUTO) 3.86 x10^3/uL (1-3.4); LYMPHOCYTES % (AUTO) 38 % (22-44); MD NO; MEAN CORPUSCULAR HEMOGLOBIN 27.6 pg (27.5-34.5); MEAN CORPUSCULAR HGB CONC 32.9 g/dL (33.2-36.2); MEAN CORPUSCULAR VOLUME 83.8 fL (81-97); MEAN PLATELET VOLUME 9.1 fL (7.4-10.4); MONOCYTES # (AUTO) 0.79 x10^3/uL (0.2-0.8); MONOCYTES % (AUTO) 8 % (2-9); NEUTROPHILS # (AUTO) 5.11 x10^3/uL (1.8-6.8); NEUTROPHILS % (AUTO) 50 % (42-75); PLATELET COUNT 229 x10^3/uL (130-400); RED BLOOD COUNT 5.64 x10^6/uL (4.38-5.82); RED CELL DISTRIBUTION WIDTH 13.7 % (9.4-14.8)
[2020-06-26 05:36] LABS: ANION GAP 7 mmol/L (5-15); CALCIUM 8.8 mg/dL (8.5-10.1); CHLORIDE 106 mmol/L (98-107)
[2020-06-26 05:39] LABS: CREATININE 0.91 mg/dL (0.7-1.3)
[2020-06-26] MEDS: METRONIDAZOLE PMX 500MG/100ML 100 ML IV SCH ×3 (06:43→23:47)
[2020-06-26] MEDS: ONDANSETRON 2MG/ML, 2ML IVPush SCH ×3 (07:00→16:00)
[2020-06-26] MEDS: INSULIN LISPRO 100 UNITS/ML, PEN SQ-INSULIN SCH ×4 (07:00→21:54)
[2020-06-26 07:45] VITALS: BP 116/82
[2020-06-26] MEDS: HYDROmorphone 2 MG/ML, 1ML IVPush PRN ×4 (09:35→21:54)
[2020-06-26] MEDS: LACTOBACILLUS CHEW TABLET PO SCH ×3 (09:36→21:01)
[2020-06-26] MEDS: METOCLOPRAMIDE 5 MG/ML, 2ML IVPush PRN (09:36)
[2020-06-26] MEDS: FAMOTIDINE 20 MG TABLET PO SCH ×2 (09:36→21:01)
[2020-06-26] MEDS: SODIUM CHLORIDE FLUSH 10ML SYR IVF SCH ×2 (09:43→21:01)
[2020-06-26] MEDS: OXYcodone IR 5MG TABLET PO PRN ×3 (10:27→21:58)
[2020-06-26] MEDS: CEFTRIAXONE PMX 1GM/50ML 50 ML IV SCH (13:28)
[2020-06-26 14:40] VITALS: BP 105/69
[2020-06-26] MEDS: metFORMIN 500 MG TABLET PO SCH (17:34)
[2020-06-26 20:00] VITALS: BP 112/70
[2020-06-27] MEDS: METOCLOPRAMIDE 5 MG/ML, 2ML IVPush SCH ×4 (00:39→18:00)
[2020-06-27 02:00] VITALS: BP 106/69
[2020-06-27] MEDS: HYDROmorphone 2 MG/ML, 1ML IVPush PRN ×2 (02:23→06:27)
[2020-06-27] MEDS: OXYcodone IR 5MG TABLET PO PRN ×3 (04:07→18:09)
[2020-06-27 06:53] LABS: BASOPHILS # (AUTO) 0.07 x10^3/uL (0-0.1); BASOPHILS % (AUTO) 1 % (0-1); EOSINOPHILS # (AUTO) 0.36 x10^3/uL (0-0.4); EOSINOPHILS % (AUTO) 3 % (1-7); LYMPHOCYTES # (AUTO) 3.92 x10^3/uL (1-3.4); LYMPHOCYTES % (AUTO) 34 % (22-44); MD NO; MEAN CORPUSCULAR HEMOGLOBIN 27.5 pg (27.5-34.5); MEAN CORPUSCULAR HGB CONC 32.8 g/dL (33.2-36.2); MEAN CORPUSCULAR VOLUME 83.7 fL (81-97); MEAN PLATELET VOLUME 8.9 fL (7.4-10.4); MONOCYTES # (AUTO) 1.02 x10^3/uL (0.2-0.8); MONOCYTES % (AUTO) 9 % (2-9); NEUTROPHILS # (AUTO) 6.35 x10^3/uL (1.8-6.8); NEUTROPHILS % (AUTO) 54 % (42-75); PLATELET COUNT 236 x10^3/uL (130-400); RED BLOOD COUNT 5.48 x10^6/uL (4.38-5.82); RED CELL DISTRIBUTION WIDTH 13.7 % (9.4-14.8)
[2020-06-27] MEDS: ONDANSETRON 2MG/ML, 2ML IVPush SCH ×3 (07:00→16:00)
[2020-06-27] MEDS: INSULIN LISPRO 100 UNITS/ML, PEN SQ-INSULIN SCH ×3 (07:00→17:02)
[2020-06-27] MEDS: METRONIDAZOLE PMX 500MG/100ML 100 ML IV SCH (07:05)
[2020-06-27 07:06] LABS: ANION GAP 7 mmol/L (5-15); CALCIUM 9.3 mg/dL (8.5-10.1); CHLORIDE 105 mmol/L (98-107)
[2020-06-27 09:59] VITALS: BP 119/79
[2020-06-27] MEDS: LACTOBACILLUS CHEW TABLET PO SCH ×2 (11:14→16:45)
[2020-06-27] MEDS: SODIUM CHLORIDE FLUSH 10ML SYR IVF SCH (11:14)
[2020-06-27] MEDS: FAMOTIDINE 20 MG TABLET PO SCH (11:15)
[2020-06-27] MEDS ORDERED: METR500T PO (15:54)
[2020-06-27] MEDS ORDERED: CEFD300C37 PO (15:54)
[2020-06-27] MEDS ORDERED: METF500T PO (15:54)
[2020-06-27] MEDS ORDERED: ACID1TAB7 PO (15:54)
[2020-06-27 15:59] VITALS: BP 112/70
[2020-06-27] MEDS ORDERED: CEFDINIR 300 MG CAPSULE PO SCH (16:00)
[2020-06-27] MEDS ORDERED: metroNIDAZOLE 500 MG TABLET PO SCH (16:00)
[2020-06-27] MEDS: metFORMIN 500 MG TABLET PO SCH (16:45)
== END 2020-06-27 18:50 | disposition home or self-care (01) | DRG 74 ==
LOC: ED 17:30 → INTOOBSV 18:02 → OBSVTOIN 18:02 → EDIP 18:02 → 3N 19:42
PROVIDERS: ADMIT Family Medicine; ATTEND Internal Medicine
DX: E11.43 Type 2 diabetes mellitus with diabetic autonomic (poly)neuropathy (principal); Z68.41 Body mass index [BMI] 40.0-44.9, adult; F11.20 Opioid dependence, uncomplicated; K56.7 Ileus, unspecified; E11.65 Type 2 diabetes mellitus with hyperglycemia; E66.01 Morbid (severe) obesity due to excess calories; G47.33 Obstructive sleep apnea (adult) (pediatric); G89.29 Other chronic pain; K31.84 Gastroparesis; K52.9 Noninfective gastroenteritis and colitis, unspecified; K76.0 Fatty (change of) liver, not elsewhere classified; N20.0 Calculus of kidney; Z90.49 Acquired absence of other specified parts of digestive tract
CPT/HCPCS: 36415; 74021; 87046; J3490; 74177; 76705; 78264; 80048; 80053; 82962; 83036; 83690; 83735; 84100; 85025; 87324; 96374; 96375; 96376; 99285; G0378; J0696; J1170; J1885; J2405; J2550; Q9967; A9541; J0500; J1200; J1815; J2765

== ENCOUNTER 2020-07-16 05:36 | Emergency (ER) | payer MEDICAID ==
[~2020-07-16] VITALS: Ht 170.2 cm; Wt 125.6 kg
[~2020-07-16 05:36] MED LIST changes: +ACID1TAB7 PO; +CEFD300C37 PO; +METF500T PO; +METR500T PO; +[UNRECOGNIZED DRUG - OTHER]; +excedrin PO
[2020-07-16] MEDS ORDERED: HYDROmorphone 1 MG/ML, 1ML INJ IV STA (05:56)
[2020-07-16] MEDS ORDERED: SODIUM CHLORIDE FLUSH 10ML SYR IVF ONE (06:00)
[2020-07-16] MEDS ORDERED: SODIUM CHLORIDE 0.9% 1,000ML IVBOLUS ONE (06:00)
[2020-07-16] MEDS ORDERED: ONDANSETRON 2MG/ML, 2ML IVPush ONE (06:00)
[2020-07-16] MEDS ORDERED: HYDROmorphone 1 MG/ML, 1ML INJ ONE (06:20)
[2020-07-16] MEDS ORDERED: ONDANSETRON 2MG/ML, 2ML ONE (06:21)
[2020-07-16 06:25] LABS: BASOPHILS # (AUTO) 0.02 x10^3/uL (0-0.1); BASOPHILS % (AUTO) 0 % (0-1); EOSINOPHILS # (AUTO) 0.04 x10^3/uL (0-0.4); EOSINOPHILS % (AUTO) 0 % (1-7); LYMPHOCYTES # (AUTO) 2.29 x10^3/uL (1-3.4); LYMPHOCYTES % (AUTO) 20 % (22-44); MD NO; MEAN CORPUSCULAR HEMOGLOBIN 27.7 pg (27.5-34.5); MEAN CORPUSCULAR HGB CONC 33.5 g/dL (33.2-36.2); MEAN CORPUSCULAR VOLUME 82.8 fL (81-97); MEAN PLATELET VOLUME 8.8 fL (7.4-10.4); MONOCYTES # (AUTO) 0.75 x10^3/uL (0.2-0.8); MONOCYTES % (AUTO) 6 % (2-9); NEUTROPHILS # (AUTO) 8.66 x10^3/uL (1.8-6.8); NEUTROPHILS % (AUTO) 74 % (42-75); PLATELET COUNT 228 x10^3/uL (130-400); RED BLOOD COUNT 5.46 x10^6/uL (4.38-5.82); RED CELL DISTRIBUTION WIDTH 14.2 % (9.4-14.8)
--- NOTE | 2020-07-16 06:27 | NUR ---
PT HAS HAD LRQ ABD PAIN FOR LAST COUPLE MONTHS, PT STATED "ALLERGY TO MS AND HYDROMORPHONE WORKS BEST" PT ASKED SUPERVISOR ELECTRONIC TESTING TO "FLUSH IN PAIN MED FASTER" WHEN MED WAS BEING GIVEN.
[2020-07-16 06:34] LABS: ALANINE AMINOTRANSFERASE 59 U/L (12-78); ALBUMIN 3.5 g/dL (3.4-5.0); ANION GAP 8 mmol/L (5-15); CALCIUM 9.9 mg/dL (8.5-10.1); CHLORIDE 109 mmol/L (98-107); CREATININE 0.93 mg/dL (0.7-1.3)
[2020-07-16 06:36] LABS: ALKALINE PHOSPHATASE 68 U/L (45-117); BILIRUBIN,TOTAL 0.6 mg/dL (0.2-1.0); TOTAL PROTEIN 8.1 g/dL (6.4-8.2)
--- NOTE | 2020-07-16 07:02 | NUR ---
RECEIVED REPORT FROM JACQIUE CARDOZA RN. PT RESTING ON Moren[place]LURAY.
[2020-07-16 07:12] VITALS: BP 129/78
--- NOTE | 2020-07-16 08:05 | NUR ---
PT PROVIDED W/ TAXI VOUCHER TO BE ABLE TO GET HOME SAFELY.
== END 2020-07-16 08:06 | disposition home or self-care (01) ==
LOC: ED 07:28
DX: G89.29 Other chronic pain (principal); R10.31 Right lower quadrant pain; R10.11 Right upper quadrant pain; R11.2 Nausea with vomiting, unspecified; R19.7 Diarrhea, unspecified
CPT/HCPCS: 80053; 82962; 83690; 85025; 96361; 96374; 96375; 99284; J1170; J2405; J7030

== ENCOUNTER 2020-07-20 21:01 | Emergency (ER) | payer MEDICAID ==
[~2020-07-20] VITALS: Ht 170.2 cm; Wt 125.7 kg
[2020-07-20] MEDS ORDERED: KETOROLAC 30 MG/1 ML ONE (21:40)
[2020-07-20] MEDS ORDERED: ONDANSETRON 2MG/ML, 2ML ONE (21:40)
[2020-07-20] MEDS ORDERED: PROMETHAZINE 25 MG/ML, 1ML ONE (21:40)
[2020-07-20] MEDS ORDERED: DICYCLOMINE 10 MG/ML, 2ML ONE (21:46)
[2020-07-20 21:59] LABS: BASOPHILS # (AUTO) 0.11 x10^3/uL (0-0.1); BASOPHILS % (AUTO) 1 % (0-1); EOSINOPHILS # (AUTO) 0.17 x10^3/uL (0-0.4); EOSINOPHILS % (AUTO) 1 % (1-7); LYMPHOCYTES # (AUTO) 3.44 x10^3/uL (1-3.4); LYMPHOCYTES % (AUTO) 25 % (22-44); MD NO; MEAN CORPUSCULAR HEMOGLOBIN 27.9 pg (27.5-34.5); MEAN CORPUSCULAR HGB CONC 33.7 g/dL (33.2-36.2); MEAN CORPUSCULAR VOLUME 82.8 fL (81-97); MEAN PLATELET VOLUME 9.2 fL (7.4-10.4); MONOCYTES # (AUTO) 0.99 x10^3/uL (0.2-0.8); MONOCYTES % (AUTO) 7 % (2-9); NEUTROPHILS # (AUTO) 9.22 x10^3/uL (1.8-6.8); NEUTROPHILS % (AUTO) 66 % (42-75); PLATELET COUNT 286 x10^3/uL (130-400); RED BLOOD COUNT 5.62 x10^6/uL (4.38-5.82); RED CELL DISTRIBUTION WIDTH 13.8 % (9.4-14.8)
[2020-07-20 22:00] LABS: ALANINE AMINOTRANSFERASE 42 U/L (12-78); ALBUMIN 3.3 g/dL (3.4-5.0); ANION GAP 12 mmol/L (5-15); CALCIUM 8.9 mg/dL (8.5-10.1); CHLORIDE 106 mmol/L (98-107); CREATININE 1.06 mg/dL (0.7-1.3)
[2020-07-20] MEDS ORDERED: SODIUM CHLORIDE 0.9% 1,000ML IVBOLUS ONE (22:00)
[2020-07-20] MEDS ORDERED: DICYCLOMINE 10 MG/ML, 2ML IM ONE (22:00)
[2020-07-20] MEDS ORDERED: ONDANSETRON 2MG/ML, 2ML IVPush ONE (22:00)
[2020-07-20] MEDS ORDERED: PROMETHAZINE 25 MG/ML, 1ML IM ONE (22:00)
[2020-07-20] MEDS ORDERED: SODIUM CHLORIDE FLUSH 10ML SYR IVF ONE (22:00)
[2020-07-20] MEDS ORDERED: KETOROLAC 30 MG/1 ML IVPush ONE (22:00)
[2020-07-20 22:05] LABS: ALKALINE PHOSPHATASE 73 U/L (45-117); BILIRUBIN,TOTAL 0.4 mg/dL (0.2-1.0); TOTAL PROTEIN 8.2 g/dL (6.4-8.2); TROPONIN I < 0.015 ng/mL (0.000-0.045)
[2020-07-20 23:52] VITALS: BP 134/74
== END 2020-07-20 23:55 | disposition home or self-care (01) ==
LOC: ED 21:31
DX: G89.29 Other chronic pain (principal); R10.84 Generalized abdominal pain; E11.65 Type 2 diabetes mellitus with hyperglycemia; R07.2 Precordial pain; R11.2 Nausea with vomiting, unspecified; R19.7 Diarrhea, unspecified; R94.31 Abnormal electrocardiogram [ECG] [EKG]; Z90.49 Acquired absence of other specified parts of digestive tract
CPT/HCPCS: 36415; 74022; 80053; 83690; 84484; 85025; 93005; 96361; 96372; 96374; 96375; 99285; J0500; J1885; J2405; J2550; J7030

== ENCOUNTER 2020-08-22 09:12 | Emergency (ER) | payer MEDICAID ==
[~2020-08-22] VITALS: Ht 167.6 cm; Wt 123.6 kg
[2020-08-22 09:15] VITALS: BP 139/93
[2020-08-22] MEDS ORDERED: LIDOCAINE-MPF 1%, 5ML INFIL ONE (09:30)
[2020-08-22] MEDS ORDERED: LIDOCAINE-MPF 1%, 5ML ONE (09:36)
[2020-08-22] MEDS ORDERED: KETOROLAC 30 MG/1 ML IM ONE (10:00)
[2020-08-22] MEDS ORDERED: KETOROLAC 30 MG/1 ML ONE (10:04)
== END 2020-08-22 10:21 | disposition home or self-care (01) ==
LOC: ED 09:38
DX: L02.31 Cutaneous abscess of buttock (principal); E11.9 Type 2 diabetes mellitus without complications; Z90.49 Acquired absence of other specified parts of digestive tract; Z88.9 Allergy status to unspecified drugs, medicaments and biological substances
CPT/HCPCS: 10060; 82962; 96372; 99283; J1885

== ENCOUNTER 2020-08-24 10:06 | Emergency (ER) | payer MEDICAID ==
[~2020-08-24] VITALS: Ht 170.2 cm; Wt 123.7 kg
[2020-08-24 10:17] VITALS: BP 139/83
[2020-08-24] MEDS ORDERED: ONDANSETRON ODT 4 MG ONE (10:49)
[2020-08-24] MEDS ORDERED: OXYcodone/APAP 5/325MG TABLET ONE (10:50)
[2020-08-24] MEDS ORDERED: OXYcodone/APAP 5/325MG TABLET PO ONE (11:00)
[2020-08-24] MEDS ORDERED: ONDANSETRON ODT 4 MG PO ONE (11:00)
== END 2020-08-24 11:18 | disposition home or self-care (01) ==
LOC: ED 10:15
DX: L02.31 Cutaneous abscess of buttock (principal); G89.4 Chronic pain syndrome; E11.9 Type 2 diabetes mellitus without complications; Z90.49 Acquired absence of other specified parts of digestive tract
CPT/HCPCS: 99283; Q0162; 10060

== ENCOUNTER 2020-09-10 03:09 | Emergency (ER) | payer MEDICAID ==
[~2020-09-10] VITALS: Ht 170.2 cm; Wt 124.6 kg
--- NOTE | 2020-09-10 03:28 | NUR ---
PT STATES HAVING LOWER BACK PAIN FOR PAST 3 DAYS. PT STATES HE NORMALLY HAS LOWER BACK PAIN OCCATIONALLY BUT IT HAS BEEN MORE INTENSE, AND LASTING LONGER. PT ALSO STATES PINS AND NEEDLES FEELING IN EXTREMITIES, AND PAIN RADIATES TO BOTH SIDES OF RIBS. PT SITTING UP IN BED, GUARDED MOVEMENT, DROWSY. PLACED ON ALL MONITORS, ERP AT BEDSIDE
[2020-09-10] MEDS ORDERED: KETOROLAC 60 MG/2 ML ONE (03:43)
[2020-09-10] MEDS ORDERED: DIAZEPAM 5 MG TABLET ONE (03:43)
--- NOTE | 2020-09-10 03:49 | NUR ---
PT MEDICATED PER EMAR, PT STATES LAST PAIN MED WAS OXYCODONE AT 1900 09/09/2020
[2020-09-10 03:57] LABS: BASOPHILS % (AUTO) 1 % (0-1); EOSINOPHILS % (AUTO) 3 % (1-7); LYMPHOCYTES % (AUTO) 38 % (22-44); MEAN CORPUSCULAR HEMOGLOBIN 27.6 pg (27.5-34.5); MEAN CORPUSCULAR HGB CONC 33.4 g/dL (33.2-36.2); MEAN PLATELET VOLUME 8.5 fL (7.4-10.4); MONOCYTES % (AUTO) 8 % (2-9); NEUTROPHILS % (AUTO) 50 % (42-75); PLATELET COUNT 224 x10^3/uL (130-400); RED BLOOD COUNT 5.55 x10^6/uL (4.38-5.82); RED CELL DISTRIBUTION WIDTH 14.3 % (9.4-14.8)
[2020-09-10 03:59] LABS: MD NO
[2020-09-10] MEDS ORDERED: KETOROLAC 30 MG/1 ML IM ONE (04:00)
[2020-09-10] MEDS ORDERED: DIAZEPAM 5 MG TABLET PO ONE (04:00)
[2020-09-10 04:05] LABS: ANION GAP 7 mmol/L (5-15); CALCIUM 9.1 mg/dL (8.5-10.1); CHLORIDE 104 mmol/L (98-107); CREATININE 0.99 mg/dL (0.7-1.3)
[2020-09-10] MEDS ORDERED: HYDROmorphone 1 MG/ML, 1ML INJ ONE (04:51)
[2020-09-10] MEDS ORDERED: HYDROmorphone 1 MG/ML, 1ML INJ IM ONE (05:00)
[2020-09-10 05:18] VITALS: BP 122/90
--- NOTE | 2020-09-10 05:23 | NUR ---
PT STATED HIS PAIN IS A LOT BETTER, AND STATED THAT THE ONLY THING THAT EVER HELPS WITH HIS PAIN IS DILAUDID AND OXYCODONE.
== END 2020-09-10 05:43 | disposition home or self-care (01) ==
LOC: ED 03:39
DX: S39.012A Strain of muscle, fascia and tendon of lower back, initial encounter (principal); E11.65 Type 2 diabetes mellitus with hyperglycemia; Z90.49 Acquired absence of other specified parts of digestive tract; X58.XXXA Exposure to other specified factors, initial encounter; Y93.89 Activity, other specified; Y92.89 Other specified places as the place of occurrence of the external cause; Y99.8 Other external cause status
CPT/HCPCS: 36415; 72072; 72110; 80048; 82040; 85025; 96372; 99284; J1170; J1885

== ENCOUNTER 2020-10-24 13:48 | Inpatient (IN) | payer MEDICAID ==
[~2020-10-24] VITALS: Ht 170.2 cm; Wt 117.7 kg
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
[2020-10-24] MEDS ORDERED: OXYcodone/APAP 5/325MG TABLET PO ONE (14:30)
[2020-10-24] MEDS ORDERED: OXYcodone/APAP 5/325MG TABLET ONE (14:32)
[2020-10-24 14:34] LABS: BASOPHILS % (AUTO) 1 % (0-1); EOSINOPHILS % (AUTO) 1 % (1-7); LYMPHOCYTES % (AUTO) 27 % (22-44); MEAN CORPUSCULAR HEMOGLOBIN 28.4 pg (27.5-34.5); MEAN CORPUSCULAR HGB CONC 34.2 g/dL (33.2-36.2); MEAN PLATELET VOLUME 8.3 fL (7.4-10.4); MONOCYTES % (AUTO) 9 % (2-9); NEUTROPHILS % (AUTO) 62 % (42-75); PLATELET COUNT 323 x10^3/uL (130-400); RED BLOOD COUNT 4.82 x10^6/uL (4.38-5.82); RED CELL DISTRIBUTION WIDTH 14.1 % (9.4-14.8)
[2020-10-24 14:38] LABS: MD NO
[2020-10-24 14:42] LABS: ALBUMIN 3.2 g/dL (3.4-5.0); ANION GAP 8 mmol/L (5-15); CALCIUM 8.7 mg/dL (8.5-10.1); CHLORIDE 106 mmol/L (98-107); CREATININE 0.96 mg/dL (0.7-1.3)
[2020-10-24] MEDS ORDERED: OMNIPAQUE 350 MG/ML, 150 ML BOTTLE ONE (15:01)
[2020-10-24] MEDS ORDERED: HYDROmorphone 1 MG/ML, 1ML INJ ONE ×2 (15:56→16:59)
[2020-10-24] MEDS: HYDROmorphone 1 MG/ML, 1ML INJ IV PRN ×2 (15:59→17:00)
[2020-10-24] MEDS ORDERED: VANCOMYCIN 2,300 MG in SODIUM CHLORIDE 0.9% 500 ML IV ONE (16:00)
[2020-10-24] MEDS ORDERED: PIPERACILLIN/TAZO/PMX 4.5GM 100 ML IVPB ONE (16:00)
[2020-10-24] MEDS ORDERED: VANCOMYCIN PER PHARMACY MC ONE (16:00)
[2020-10-24] MEDS ORDERED: SODIUM CHLORIDE FLUSH 10ML SYR IVF PRN (16:00)
--- NOTE | 2020-10-24 16:14 | NUR ---
PT RESTING IN BED. NADN. VSS. AWARE OF POC FOR ADMISSION. ORTHO MD AT BEDSIDE.
[2020-10-24] MEDS ORDERED: DEXTROSE 4 GM TAB.CHEW PO PRN (16:30)
[2020-10-24] MEDS ORDERED: ACETAMINOPHEN 325 MG TABLET PO PRN (16:30)
[2020-10-24] MEDS ORDERED: ENALAPRILAT 1.25 MG/ML, 2ML IVPush PRN (16:30)
[2020-10-24] MEDS ORDERED: METOCLOPRAMIDE 5 MG/ML, 2ML IVPush PRN (16:30)
[2020-10-24] MEDS ORDERED: ONDANSETRON 2MG/ML, 2ML IVPush PRN (16:30)
[2020-10-24] MEDS ORDERED: DEXTROSE 50%, 50ML SYRINGE IVPush PRN (16:30)
[2020-10-24] MEDS ORDERED: GLUCAGON 1 MG IM PRN (16:30)
[2020-10-24] MEDS ORDERED: TRAZODONE 50MG TABLET PO PRN (16:30)
[2020-10-24] MEDS ORDERED: ONDANSETRON ODT 4 MG PO PRN (16:30)
[2020-10-24 17:21] VITALS: BP 108/84
[2020-10-24] MEDS ORDERED: DIPHENHYDRAMINE 50 MG/ML, 1ML IVPush ONE (19:00)
[2020-10-24 19:40] VITALS: BP 107/70
[2020-10-24] MEDS ORDERED: VANCOMYCIN PER PHARMACY MC PRN (20:00)
[2020-10-24] MEDS ORDERED: VANCOMYCIN 2,500 MG in SODIUM CHLORIDE 0.9% 500 ML IV SCH (20:00)
[2020-10-24] MEDS ORDERED: PHARMACOKINETIC MONITORING MC PRN (20:00)
[2020-10-24] MEDS: AMPICILLIN/SULBACTAM 3 GM in SODIUM CHLORIDE 0.9% 100 ML IV SCH (20:10)
[2020-10-24] MEDS: SODIUM CHLORIDE FLUSH 10ML SYR IVF SCH (20:10)
[2020-10-24] MEDS: HYDROmorphone 2 MG/ML, 1ML IVPush PRN ×2 (20:11→23:45)
[2020-10-24] MEDS: INSULIN LISPRO 100 UNITS/ML, PEN SQ-INSULIN SCH (21:28)
[2020-10-24] MEDS: OXYcodone/APAP 5/325MG TABLET PO PRN (21:31)
[2020-10-25] MEDS: VANCOMYCIN 2,500 MG in SODIUM CHLORIDE 0.9% 500 ML IV SCH ×2 (00:13→10:04)
[2020-10-25 00:44] VITALS: BP 127/74
[2020-10-25] MEDS: AMPICILLIN/SULBACTAM 3 GM in SODIUM CHLORIDE 0.9% 100 ML IV SCH ×4 (02:16→19:56)
[2020-10-25] MEDS: OXYcodone/APAP 5/325MG TABLET PO PRN ×3 (02:20→18:03)
[2020-10-25] MEDS: HYDROmorphone 2 MG/ML, 1ML IVPush PRN ×6 (03:29→23:02)
[2020-10-25 05:07] LABS: BASOPHILS % (AUTO) 1 % (0-1); EOSINOPHILS % (AUTO) 3 % (1-7); LYMPHOCYTES % (AUTO) 32 % (22-44); MEAN CORPUSCULAR HGB CONC 33.6 g/dL (33.2-36.2); MEAN PLATELET VOLUME 8.1 fL (7.4-10.4); MONOCYTES % (AUTO) 10 % (2-9); NEUTROPHILS % (AUTO) 54 % (42-75); PLATELET COUNT 265 x10^3/uL (130-400); RED BLOOD COUNT 4.45 x10^6/uL (4.38-5.82); RED CELL DISTRIBUTION WIDTH 14.5 % (9.4-14.8)
[2020-10-25 05:13] LABS: MD NO
[2020-10-25 05:15] LABS: ANION GAP 6 mmol/L (5-15); CALCIUM 8.7 mg/dL (8.5-10.1); CHLORIDE 106 mmol/L (98-107)
[2020-10-25 05:16] LABS: CREATININE 0.95 mg/dL (0.7-1.3)
[2020-10-25] MEDS: INSULIN LISPRO 100 UNITS/ML, PEN SQ-INSULIN SCH ×4 (07:17→20:11)
[2020-10-25 07:49] VITALS: BP 116/82
[2020-10-25] MEDS: SODIUM CHLORIDE FLUSH 10ML SYR IVF SCH ×2 (09:22→19:56)
[2020-10-25] MEDS ORDERED: FENTANYL PF 250 MCG/5ML ONE (11:17)
[2020-10-25] MEDS ORDERED: MIDAZOLAM 1 MG/ML, 2ML ONE (11:17)
[2020-10-25] MEDS ORDERED: ROCURONIUM 10MG/ML,5ML ONE (11:55)
[2020-10-25] MEDS ORDERED: CEFAZOLIN 1,000 MG ONE (11:55)
[2020-10-25] MEDS ORDERED: NEOSTIGMINE 1 MG/ML, 10ML ONE (11:55)
[2020-10-25] MEDS ORDERED: SUCCINYLCHOLINE 20 MG/ML, 10ML ONE (11:55)
[2020-10-25] MEDS ORDERED: GLYCOPYRROLATE 0.2MG/1ML, 5ML ONE (11:55)
[2020-10-25] MEDS ORDERED: ONDANSETRON 2MG/ML, 2ML ONE (11:55)
[2020-10-25] MEDS ORDERED: PROPOFOL 10 MG/ML, 20ML ONE (11:55)
[2020-10-25] MEDS ORDERED: DEXAMETHASONE 4 MG/ML, 1ML ONE (11:55)
[2020-10-25] MEDS: HYDROmorphone 1 MG/ML, 1ML INJ IVPush PRN ×4 (12:06→12:23)
[2020-10-25] MEDS ORDERED: OXYcodone 5 MG/5 ML ORAL.SOL UDC ONE (12:09)
[2020-10-25] MEDS ORDERED: HYDROmorphone 2 MG/ML, 1ML ONE (12:09)
[2020-10-25] MEDS ORDERED: ONDANSETRON 2MG/ML, 2ML IVPush PRN (12:30)
[2020-10-25] MEDS ORDERED: MEPERIDINE/PF 25MG/0.5ML IVPush PRN (12:30)
[2020-10-25] MEDS ORDERED: hydrALAzine 20 MG/ML, 1ML IV PRN (12:30)
[2020-10-25] MEDS ORDERED: MIDAZOLAM 1 MG/ML, 2ML IV PRN (12:30)
[2020-10-25] MEDS ORDERED: PROMETHAZINE 25 MG/ML, 1ML IVPush PRN (12:30)
[2020-10-25] MEDS ORDERED: FENTANYL PF 100 MCG/2ML IV PRN (12:30)
[2020-10-25] MEDS ORDERED: LABETALOL 5MG/ML, 20ML IV PRN (12:30)
[2020-10-25] MEDS ORDERED: DIAZEPAM 5 MG/ML, 2ML IVPush PRN (12:30)
[2020-10-25] MEDS ORDERED: OXYcodone 5 MG/5 ML ORAL.SOL UDC PO PRN (12:30)
[2020-10-25 14:45] VITALS: BP 124/80
[2020-10-25 20:00] VITALS: BP 106/63
[2020-10-25] MEDS: VANCOMYCIN 2,000 MG in SODIUM CHLORIDE 0.9% 500 ML IV SCH (22:49)
[2020-10-26] MEDS: AMPICILLIN/SULBACTAM 3 GM in SODIUM CHLORIDE 0.9% 100 ML IV SCH ×4 (01:44→20:01)
[2020-10-26 02:00] VITALS: BP 97/58
[2020-10-26] MEDS: HYDROmorphone 2 MG/ML, 1ML IVPush PRN ×4 (02:49→13:36)
[2020-10-26] MEDS: OXYcodone/APAP 5/325MG TABLET PO PRN ×4 (04:10→22:01)
[2020-10-26 06:39] LABS: BASOPHILS % (AUTO) 1 % (0-1); EOSINOPHILS % (AUTO) 1 % (1-7); LYMPHOCYTES % (AUTO) 21 % (22-44); MD NO; MEAN CORPUSCULAR HEMOGLOBIN 27.9 pg (27.5-34.5); MEAN CORPUSCULAR HGB CONC 33.1 g/dL (33.2-36.2); MEAN PLATELET VOLUME 8.6 fL (7.4-10.4); MONOCYTES % (AUTO) 9 % (2-9); NEUTROPHILS % (AUTO) 68 % (42-75); PLATELET COUNT 260 x10^3/uL (130-400); RED BLOOD COUNT 4.24 x10^6/uL (4.38-5.82); RED CELL DISTRIBUTION WIDTH 14.2 % (9.4-14.8)
[2020-10-26 06:50] LABS: ANION GAP 5 mmol/L (5-15); CALCIUM 8.8 mg/dL (8.5-10.1); CHLORIDE 105 mmol/L (98-107)
[2020-10-26 07:05] VITALS: BP 124/79
[2020-10-26] MEDS: INSULIN LISPRO 100 UNITS/ML, PEN SQ-INSULIN SCH ×4 (08:17→19:56)
[2020-10-26] MEDS: SODIUM CHLORIDE FLUSH 10ML SYR IVF SCH ×2 (08:21→21:41)
[2020-10-26] MEDS: VANCOMYCIN 2,000 MG in SODIUM CHLORIDE 0.9% 500 ML IV SCH ×2 (10:55→23:30)
[2020-10-26 14:45] VITALS: BP 130/81
[2020-10-26] MEDS ORDERED: HYDROmorphone 1 MG/ML, 1ML INJ ONE (16:35)
[2020-10-26] MEDS: HYDROmorphone 1 MG/ML, 1ML INJ IVPush PRN ×3 (16:46→23:30)
[2020-10-26 19:08] VITALS: BP 109/71
[2020-10-26 19:57] VITALS: BP 104/73
[2020-10-26] MEDS: INSULIN GLARGINE 100 UNITS/ML, PEN SQ-INSULIN SCH (21:42)
[2020-10-27 00:44] VITALS: BP 132/82
[2020-10-27] MEDS: AMPICILLIN/SULBACTAM 3 GM in SODIUM CHLORIDE 0.9% 100 ML IV SCH ×5 (01:45→21:54)
[2020-10-27] MEDS: HYDROmorphone 1 MG/ML, 1ML INJ IVPush PRN ×5 (02:37→21:53)
[2020-10-27] MEDS: OXYcodone/APAP 5/325MG TABLET PO PRN ×3 (04:31→22:30)
[2020-10-27 06:41] VITALS: BP 125/82
[2020-10-27] MEDS: INSULIN LISPRO 100 UNITS/ML, PEN SQ-INSULIN SCH ×4 (07:00→21:55)
[2020-10-27] MEDS: SODIUM CHLORIDE FLUSH 10ML SYR IVF SCH ×2 (08:12→21:54)
[2020-10-27] MEDS: VANCOMYCIN 2,000 MG in SODIUM CHLORIDE 0.9% 500 ML IV SCH ×2 (11:31→22:50)
[2020-10-27 11:59] VITALS: BP 102/69
[2020-10-27 21:30] VITALS: BP 109/75
[2020-10-27] MEDS: INSULIN GLARGINE 100 UNITS/ML, PEN SQ-INSULIN SCH (21:55)
[2020-10-28 01:00] VITALS: BP 128/84
[2020-10-28] MEDS: HYDROmorphone 1 MG/ML, 1ML INJ IVPush PRN ×6 (01:04→21:13)
[2020-10-28] MEDS: AMPICILLIN/SULBACTAM 3 GM in SODIUM CHLORIDE 0.9% 100 ML IV SCH ×4 (03:03→21:12)
[2020-10-28] MEDS: OXYcodone/APAP 5/325MG TABLET PO PRN ×3 (04:11→21:49)
[2020-10-28 07:32] VITALS: BP 115/81
[2020-10-28] MEDS: INSULIN LISPRO 100 UNITS/ML, PEN SQ-INSULIN SCH ×4 (08:16→21:48)
[2020-10-28 08:27] LABS: BASOPHILS % (AUTO) 1 % (0-1); EOSINOPHILS % (AUTO) 3 % (1-7); LYMPHOCYTES % (AUTO) 36 % (22-44); MEAN CORPUSCULAR HEMOGLOBIN 27.7 pg (27.5-34.5); MEAN CORPUSCULAR HGB CONC 32.4 g/dL (33.2-36.2); MEAN PLATELET VOLUME 9.3 fL (7.4-10.4); MONOCYTES % (AUTO) 9 % (2-9); NEUTROPHILS % (AUTO) 51 % (42-75); PLATELET COUNT 129 x10^3/uL (130-400); RED BLOOD COUNT 4.59 x10^6/uL (4.38-5.82)
[2020-10-28 08:36] LABS: MD NO
[2020-10-28 08:37] LABS: ANION GAP 7 mmol/L (5-15); CALCIUM 9.2 mg/dL (8.5-10.1); CHLORIDE 105 mmol/L (98-107)
[2020-10-28] MEDS: SODIUM CHLORIDE FLUSH 10ML SYR IVF SCH ×2 (09:46→21:13)
[2020-10-28] MEDS: VANCOMYCIN 2,000 MG in SODIUM CHLORIDE 0.9% 500 ML IV SCH ×2 (11:55→23:26)
[2020-10-28 13:05] VITALS: BP 105/67
[2020-10-28 19:39] VITALS: BP 126/81
[2020-10-28] MEDS: INSULIN GLARGINE 100 UNITS/ML, PEN SQ-INSULIN SCH (21:48)
[2020-10-29] MEDS: HYDROmorphone 1 MG/ML, 1ML INJ IVPush PRN ×4 (00:19→19:35)
[2020-10-29] MEDS: OXYcodone/APAP 5/325MG TABLET PO PRN ×4 (01:55→21:00)
[2020-10-29 02:05] VITALS: BP 124/75
[2020-10-29] MEDS: AMPICILLIN/SULBACTAM 3 GM in SODIUM CHLORIDE 0.9% 100 ML IV SCH ×4 (03:21→21:00)
[2020-10-29] MEDS: INSULIN LISPRO 100 UNITS/ML, PEN SQ-INSULIN SCH ×4 (07:00→21:01)
[2020-10-29] MEDS: SODIUM CHLORIDE FLUSH 10ML SYR IVF SCH ×2 (09:07→21:01)
[2020-10-29 09:59] VITALS: BP 117/81
[2020-10-29] MEDS: VANCOMYCIN 2,000 MG in SODIUM CHLORIDE 0.9% 500 ML IV SCH ×2 (11:11→23:25)
[2020-10-29 15:44] VITALS: BP 103/71
[2020-10-29 19:10] VITALS: BP 112/75
[2020-10-29] MEDS: INSULIN GLARGINE 100 UNITS/ML, PEN SQ-INSULIN SCH (21:01)
[2020-10-30 00:17] VITALS: BP 140/84
[2020-10-30] MEDS: OXYcodone/APAP 5/325MG TABLET PO PRN ×3 (01:08→13:58)
[2020-10-30] MEDS: AMPICILLIN/SULBACTAM 3 GM in SODIUM CHLORIDE 0.9% 100 ML IV SCH ×2 (03:16→08:48)
[2020-10-30] MEDS: HYDROmorphone 1 MG/ML, 1ML INJ IVPush PRN (03:48)
[2020-10-30] MEDS: INSULIN LISPRO 100 UNITS/ML, PEN SQ-INSULIN SCH ×2 (07:00→12:10)
[2020-10-30 07:55] VITALS: BP 113/72
[2020-10-30 08:32] LABS: BASOPHILS % (AUTO) 1 % (0-1); EOSINOPHILS % (AUTO) 3 % (1-7); LYMPHOCYTES % (AUTO) 33 % (22-44); MEAN CORPUSCULAR HEMOGLOBIN 28.8 pg (27.5-34.5); MEAN CORPUSCULAR HGB CONC 33.9 g/dL (33.2-36.2); MEAN PLATELET VOLUME 8.2 fL (7.4-10.4); MONOCYTES % (AUTO) 11 % (2-9); NEUTROPHILS % (AUTO) 52 % (42-75); PLATELET COUNT 279 x10^3/uL (130-400); RED BLOOD COUNT 4.64 x10^6/uL (4.38-5.82); RED CELL DISTRIBUTION WIDTH 14.5 % (9.4-14.8)
[2020-10-30 08:35] LABS: MD NO
[2020-10-30 08:37] LABS: ANION GAP 7 mmol/L (5-15); CALCIUM 9.3 mg/dL (8.5-10.1); CHLORIDE 107 mmol/L (98-107); CREATININE 0.96 mg/dL (0.7-1.3)
[2020-10-30] MEDS: SODIUM CHLORIDE FLUSH 10ML SYR IVF SCH (08:52)
[2020-10-30] MEDS: VANCOMYCIN 2,000 MG in SODIUM CHLORIDE 0.9% 500 ML IV SCH (11:36)
[2020-10-30] MEDS ORDERED: SULF1TAB24 PO (12:03)
== END 2020-10-30 15:20 | disposition home or self-care (01) | DRG 580 ==
LOC: ED 14:12 → SUATTDRO 16:22 → 3N 17:13 → DCLOUNGE 10-30 15:09
PROVIDERS: ADMIT Hospitalist; ATTEND Hospitalist
PROC: 0KBT0ZZ Excision of Left Lower Leg Muscle, Open Approach (ICD-10-PCS; principal; 2020-10-25 15:00)
DX: L02.416 Cutaneous abscess of left lower limb (principal); Z68.41 Body mass index [BMI] 40.0-44.9, adult; G89.29 Other chronic pain; G47.33 Obstructive sleep apnea (adult) (pediatric); E66.9 Obesity, unspecified; Z20.828 Contact with and (suspected) exposure to other viral communicable diseases; E11.9 Type 2 diabetes mellitus without complications
CPT/HCPCS: 36415; 80048; 80202; 82040; 82962; 83605; 85025; 87040; 87070; 87075; 87205; 87635; 93005; 94660; 96365; 96375; 99285; G0378; J0295; J0690; J1100; J1170; J2250; J2405; J2543; J2704; J2710; J3010; J3370; Q9967; J0330; J1815; J7040

== ENCOUNTER 2020-11-04 04:24 | Emergency (ER) | payer MEDICAID ==
[~2020-11-04] VITALS: Ht 170.2 cm; Wt 123.0 kg
[~2020-11-04 04:24] MED LIST changes: +SULF1TAB24 PO
--- NOTE | 2020-11-04 05:07 | NUR ---
PT SITTING UP IN BED, TAKING DEEP BREATHS, ASSOCIATED WITH PAIN. PT HAS BEEN TAKING ABX AND PAIN MEDS PRESCRIBED AT HOME. STATES PAIN GOT BETTER THAN WORSE IN THE PAST "12-15 HOURS, IT FEELS THE SAME IT DID BEFORE MY SX." SX WAS FOR CELLULITUS. PT HAS NADEEM DRAIN THAT "HAS BEEN PUTTING OUT MORE FLUID." FLUID IS SEROUS-SANGINOUS.
[2020-11-04] MEDS ORDERED: OXYcodone/APAP 10/325MG TABLET PO ONE ×2 (05:30→08:00)
[2020-11-04] MEDS ORDERED: OXYcodone/APAP 10/325MG TABLET ONE ×2 (05:39→08:43)
--- NOTE | 2020-11-04 05:39 | NUR ---
PT STATES HE TAKE PERCOCET 10MG AT HOME. CONFIRMED PERCOCET DOSE WITH MD DICKSON. PT MEDICATED TO JAN.
--- NOTE | 2020-11-04 06:04 | NUR ---
PT AMBULATORY TO BATHROOM, STEADY GAIT.
[2020-11-04 06:30] LABS: ALBUMIN 3.3 g/dL (3.4-5.0); ANION GAP 7 mmol/L (5-15); CALCIUM 9.2 mg/dL (8.5-10.1); CHLORIDE 106 mmol/L (98-107)
[2020-11-04 06:31] LABS: CREATININE 0.95 mg/dL (0.7-1.3)
[2020-11-04 06:33] LABS: BASOPHILS % (AUTO) 1 % (0-1); EOSINOPHILS % (AUTO) 1 % (1-7); LYMPHOCYTES % (AUTO) 27 % (22-44); MEAN CORPUSCULAR HEMOGLOBIN 28.1 pg (27.5-34.5); MEAN CORPUSCULAR HGB CONC 33.6 g/dL (33.2-36.2); MEAN PLATELET VOLUME 8.7 fL (7.4-10.4); MONOCYTES % (AUTO) 9 % (2-9); NEUTROPHILS % (AUTO) 63 % (42-75); PLATELET COUNT 317 x10^3/uL (130-400); RED BLOOD COUNT 4.93 x10^6/uL (4.38-5.82); RED CELL DISTRIBUTION WIDTH 14.4 % (9.4-14.8)
[2020-11-04] MEDS ORDERED: PROMETHAZINE 25 MG/ML, 1ML ONE (06:38)
--- NOTE | 2020-11-04 06:43 | NUR ---
PT HAS APPROX 100ML'S OF VOMIT IN BAG. STATES HE THREW UP AT APPROX 0640. ERP MADE AWARE THAT PT IS STILL STATING PAIN. ERP MADE AWARE OF VOMIT. PT MEDICATED TO JAN.
[2020-11-04] MEDS ORDERED: PROMETHAZINE 25 MG/ML, 1ML IM ONE (07:00)
--- NOTE | 2020-11-04 07:12 | NUR ---
Report from MODE Sloan
--- NOTE | 2020-11-04 07:26 | NUR ---
Pt sitting up in bed, watching TV. States nausea is improved. Also states more drainage than normal from NADEEM drain. Pt is tachycardic. Does not appear in distress at this time. VS updated.
[2020-11-04 08:00] LABS: MD SCAN
[2020-11-04 08:58] VITALS: BP 111/66
== END 2020-11-04 09:00 | disposition home or self-care (01) ==
LOC: ED 04:52
DX: M79.662 Pain in left lower leg (principal); M79.661 Pain in right lower leg; G89.18 Other acute postprocedural pain; E11.9 Type 2 diabetes mellitus without complications
CPT/HCPCS: 36415; 73590; 80048; 82040; 85025; 93971; 96372; 99285; J2550

== ENCOUNTER 2020-11-05 17:38 | Emergency (ER) | payer MEDICAID ==
[~2020-11-05] VITALS: Ht 170.2 cm; Wt 123.4 kg
[2020-11-05] MEDS ORDERED: SODIUM CHLORIDE 0.9% 1,000ML IVBOLUS ONE (18:00)
--- NOTE | 2020-11-05 20:30 | NUR ---
pt to room from lobby
--- NOTE | 2020-11-05 20:45 | NUR ---
PT HERE FOR LEFT LEG PAIN. PT WAS SEEN HERE YESTERDAY FOR SAME. PT TAKEN TO ROOM BY WHEELCHAIR. CALL LIGHT IN REACH
[2020-11-05] MEDS ORDERED: HYDROmorphone 1 MG/ML, 1ML INJ ONE (21:28)
[2020-11-05] MEDS ORDERED: HYDROmorphone 1 MG/ML, 1ML INJ IM ONE (21:30)
[2020-11-05 21:59] VITALS: BP 127/83
== END 2020-11-05 22:04 | disposition home or self-care (01) ==
LOC: ED 21:32
DX: G89.11 Acute pain due to trauma (principal); M79.661 Pain in right lower leg; E11.9 Type 2 diabetes mellitus without complications; Z90.49 Acquired absence of other specified parts of digestive tract; X58.XXXA Exposure to other specified factors, initial encounter; Y93.89 Activity, other specified; Y92.488 Other paved roadways as the place of occurrence of the external cause; Y99.8 Other external cause status
CPT/HCPCS: 96372; 99283; J1170

== ENCOUNTER 2020-11-21 19:16 | Emergency (ER) | payer MEDICAID ==
[~2020-11-21] VITALS: Ht 170.2 cm; Wt 123.0 kg
[2020-11-21 19:18] VITALS: BP 131/91
[2020-11-21] MEDS ORDERED: ONDANSETRON ODT 4 MG PO ONE (20:30)
[2020-11-21] MEDS ORDERED: ONDANSETRON ODT 4 MG ONE (20:35)
== END 2020-11-21 21:39 | disposition home or self-care (01) ==
LOC: ED 21:10
DX: G89.29 Other chronic pain (principal); M79.662 Pain in left lower leg; M79.89 Other specified soft tissue disorders; E11.65 Type 2 diabetes mellitus with hyperglycemia
CPT/HCPCS: 93971; 99284; Q0162

== ENCOUNTER 2020-11-23 02:38 | Emergency (ER) | payer MEDICAID ==
[~2020-11-23] VITALS: Ht 170.2 cm; Wt 123.6 kg
[2020-11-23] MEDS ORDERED: ONDANSETRON ODT 4 MG PO ONE (03:30)
[2020-11-23] MEDS ORDERED: OXYcodone/APAP 7.5/325MG TABLET ONE (04:26)
[2020-11-23] MEDS ORDERED: OXYcodone/APAP 7.5/325MG TABLET PO ONE (04:30)
[2020-11-23 04:33] VITALS: BP 124/85
== END 2020-11-23 04:43 | disposition home or self-care (01) ==
LOC: ED 03:08
DX: R07.89 Other chest pain (principal); F11.20 Opioid dependence, uncomplicated; R00.0 Tachycardia, unspecified; E11.9 Type 2 diabetes mellitus without complications; Z90.49 Acquired absence of other specified parts of digestive tract; Z76.5 Malingerer [conscious simulation]; Z72.9 Problem related to lifestyle, unspecified
CPT/HCPCS: 71045; 93005; 99283

== ENCOUNTER 2020-12-04 04:07 | Emergency (ER) | payer MEDICAID ==
[~2020-12-04] VITALS: Ht 170.2 cm; Wt 121.0 kg
--- NOTE | 2020-12-04 04:39 | NUR ---
pt states n/v x 2 days. cp x 1 day, worse c deep breath/ coughing / movement. 1 episode of emesis while in er. pt states he is unable to keep down his medication. states taking 4mg dilaudid qid, recently decreased from 6/day.
[2020-12-04] MEDS ORDERED: HYDROmorphone 1 MG/ML, 1ML INJ ONE ×3 (05:00→07:48)
[2020-12-04] MEDS ORDERED: SODIUM CHLORIDE 0.9% 1,000ML IVBOLUS ONE (05:00)
[2020-12-04] MEDS ORDERED: ONDANSETRON 2MG/ML, 2ML ONE (05:00)
[2020-12-04] MEDS ORDERED: SODIUM CHLORIDE FLUSH 10ML SYR IVF ONE (05:00)
[2020-12-04] MEDS ORDERED: ONDANSETRON 2MG/ML, 2ML IVPush ONE (05:00)
[2020-12-04] MEDS: HYDROmorphone 2 MG/ML, 1ML IVPush PRN ×2 (05:02→06:10)
[2020-12-04 05:10] LABS: BASOPHILS % (AUTO) 1 % (0-1); EOSINOPHILS % (AUTO) 1 % (1-7); LYMPHOCYTES % (AUTO) 28 % (22-44); MEAN CORPUSCULAR HEMOGLOBIN 27.6 pg (27.5-34.5); MEAN CORPUSCULAR HGB CONC 33.4 g/dL (33.2-36.2); MEAN PLATELET VOLUME 8.6 fL (7.4-10.4); MONOCYTES % (AUTO) 8 % (2-9); NEUTROPHILS % (AUTO) 62 % (42-75); PLATELET COUNT 323 x10^3/uL (130-400); RED BLOOD COUNT 5.63 x10^6/uL (4.38-5.82); RED CELL DISTRIBUTION WIDTH 13.9 % (9.4-14.8)
[2020-12-04 05:14] LABS: MD NO
[2020-12-04 05:21] LABS: ALANINE AMINOTRANSFERASE 36 U/L (12-78); ALBUMIN 3.2 g/dL (3.4-5.0); ANION GAP 7 mmol/L (5-15); CALCIUM 9.4 mg/dL (8.5-10.1); CHLORIDE 103 mmol/L (98-107); CREATININE 1.18 mg/dL (0.7-1.3)
[2020-12-04 05:23] LABS: ALKALINE PHOSPHATASE 89 U/L (45-117); BILIRUBIN,TOTAL 0.4 mg/dL (0.2-1.0); TOTAL PROTEIN 8.6 g/dL (6.4-8.2)
[2020-12-04] MEDS ORDERED: MAALOX/HYOSCYAMINE/LIDOCAINE 45 ML BTL ONE (06:06)
[2020-12-04] MEDS ORDERED: MAALOX/HYOSCYAMINE/LIDOCAINE 45 ML BTL PO ONE (06:30)
--- NOTE | 2020-12-04 07:00 | NUR ---
REPORT FROM SALUD
[2020-12-04 07:59] VITALS: BP 136/91
[2020-12-04] MEDS ORDERED: HYDROmorphone 1 MG/ML, 1ML INJ IV ONE (08:00)
--- NOTE | 2020-12-04 08:00 | NUR ---
MEDICATED PER ORDERS.
--- NOTE | 2020-12-04 08:15 | NUR ---
Patient/Caregiver given discharge instructions and they have confirmed that they understand the instructions. Patient ambulatory with steady gait.
== END 2020-12-04 08:17 | disposition home or self-care (01) ==
LOC: ED 05:52
DX: G89.29 Other chronic pain (principal); R10.13 Epigastric pain; R07.89 Other chest pain; F11.23 Opioid dependence with withdrawal; R11.2 Nausea with vomiting, unspecified; E11.9 Type 2 diabetes mellitus without complications
CPT/HCPCS: 36415; 74022; 80053; 83690; 85025; 93005; 96361; 96374; 96375; 96376; 99285; J1170; J2405; J7030

== ENCOUNTER 2020-12-04 21:06 | Emergency (ER) | payer MEDICAID ==
[~2020-12-04] VITALS: Ht 170.2 cm; Wt 123.7 kg
[2020-12-04] MEDS ORDERED: MAALOX/HYOSCYAMINE/LIDOCAINE 45 ML BTL ONE (21:51)
[2020-12-04] MEDS ORDERED: KETAMINE 10 MG/ML, 20ML ONE ×2 (21:51→23:30)
[2020-12-04] MEDS ORDERED: METOCLOPRAMIDE 5 MG/ML, 2ML ONE (21:51)
[2020-12-04] MEDS ORDERED: FAMOTIDINE 20 MG/2 ML ONE (21:52)
[2020-12-04] MEDS ORDERED: KETAMINE 10 MG/ML, 20ML IV ONE ×2 (22:00→23:30)
[2020-12-04] MEDS ORDERED: MAALOX/HYOSCYAMINE/LIDOCAINE 45 ML BTL PO ONE (22:00)
[2020-12-04] MEDS ORDERED: METOCLOPRAMIDE 5 MG/ML, 2ML IVPush ONE (22:00)
[2020-12-04] MEDS ORDERED: FAMOTIDINE 20 MG/2 ML IVPush ONE (22:00)
[2020-12-04 22:10] LABS: BASOPHILS % (AUTO) 1 % (0-1); EOSINOPHILS % (AUTO) 1 % (1-7); LYMPHOCYTES % (AUTO) 20 % (22-44); MEAN CORPUSCULAR HEMOGLOBIN 27.4 pg (27.5-34.5); MEAN CORPUSCULAR HGB CONC 33.9 g/dL (33.2-36.2); MEAN PLATELET VOLUME 8.6 fL (7.4-10.4); MONOCYTES % (AUTO) 6 % (2-9); NEUTROPHILS % (AUTO) 72 % (42-75); PLATELET COUNT 301 x10^3/uL (130-400); RED BLOOD COUNT 5.53 x10^6/uL (4.38-5.82); RED CELL DISTRIBUTION WIDTH 14.2 % (9.4-14.8)
[2020-12-04 22:12] LABS: MD NO
[2020-12-04 22:21] LABS: ALANINE AMINOTRANSFERASE 38 U/L (12-78); ALBUMIN 3.3 g/dL (3.4-5.0); ANION GAP 5 mmol/L (5-15); CALCIUM 9.7 mg/dL (8.5-10.1); CHLORIDE 102 mmol/L (98-107); CREATININE 1.06 mg/dL (0.7-1.3)
[2020-12-04 22:26] LABS: ALKALINE PHOSPHATASE 75 U/L (45-117); BILIRUBIN,TOTAL 0.3 mg/dL (0.2-1.0); TOTAL PROTEIN 8.2 g/dL (6.4-8.2); TROPONIN I < 0.015 ng/mL (0.000-0.045)
[2020-12-04] MEDS ORDERED: PROCHLORPERAZINE 5 MG/ML, 2ML ONE (22:45)
[2020-12-04] MEDS ORDERED: PROCHLORPERAZINE 5 MG/ML, 2ML IVPush ONE (23:00)
--- NOTE | 2020-12-04 23:00 | NUR ---
PT TRANSPORTED TO CT.
--- NOTE | 2020-12-04 23:05 | NUR ---
REPORT RECIEVED FROM MODE JACKSON
[2020-12-04] MEDS ORDERED: OMNIPAQUE 350 MG/ML, 150 ML BOTTLE ONE (23:25)
[2020-12-05] MEDS ORDERED: HYDROmorphone 1 MG/ML, 1ML INJ ONE (00:08)
[2020-12-05] MEDS ORDERED: HYDROmorphone 2 MG/ML, 1ML IVPush PRN (00:30)
[2020-12-05 00:31] VITALS: BP 134/86
--- NOTE | 2020-12-05 00:34 | NUR ---
Patient/Caregiver given discharge instructions and they have confirmed that they understand the instructions. Patient ambulatory with steady gait.
== END 2020-12-05 00:35 | disposition home or self-care (01) ==
LOC: ED 21:37
DX: K21.9 Gastro-esophageal reflux disease without esophagitis (principal); K29.70 Gastritis, unspecified, without bleeding; F19.20 Other psychoactive substance dependence, uncomplicated
CPT/HCPCS: 36415; 71045; 71250; 74177; 80053; 83690; 84145; 84484; 85025; 93005; 96374; 96375; 99285; J0780; J1170; J2765; Q9967

== ENCOUNTER 2020-12-13 18:34 | Emergency (ER) | payer MEDICAID ==
[~2020-12-13] VITALS: Ht 170.2 cm; Wt 126.0 kg
[2020-12-13] MEDS ORDERED: SODIUM CHLORIDE FLUSH 10ML SYR IVF ONE (19:00)
[2020-12-13] MEDS ORDERED: SODIUM CHLORIDE 0.9% 1,000ML IVBOLUS ONE (19:00)
[2020-12-13] MEDS ORDERED: ONDANSETRON 2MG/ML, 2ML IVPush ONE (19:00)
[2020-12-13] MEDS ORDERED: ONDANSETRON 2MG/ML, 2ML ONE (19:10)
[2020-12-13 19:15] LABS: BASOPHILS % (AUTO) 1 % (0-1); EOSINOPHILS % (AUTO) 3 % (1-7); LYMPHOCYTES % (AUTO) 32 % (22-44); MEAN CORPUSCULAR HEMOGLOBIN 27.2 pg (27.5-34.5); MEAN CORPUSCULAR HGB CONC 33.6 g/dL (33.2-36.2); MEAN PLATELET VOLUME 8.6 fL (7.4-10.4); MONOCYTES % (AUTO) 10 % (2-9); NEUTROPHILS % (AUTO) 54 % (42-75); PLATELET COUNT 281 x10^3/uL (130-400); RED BLOOD COUNT 5.25 x10^6/uL (4.38-5.82)
[2020-12-13 19:16] LABS: MD NO
[2020-12-13 19:26] LABS: ALBUMIN 2.9 g/dL (3.4-5.0); ANION GAP 9 mmol/L (5-15); CALCIUM 8.8 mg/dL (8.5-10.1); CHLORIDE 100 mmol/L (98-107)
[2020-12-13] MEDS ORDERED: FAMOTIDINE 20 MG/2 ML IV ONE (19:30)
[2020-12-13 19:31] LABS: ALANINE AMINOTRANSFERASE 41 U/L (12-78); ALKALINE PHOSPHATASE 85 U/L (45-117); BILIRUBIN,TOTAL 0.3 mg/dL (0.2-1.0); CREATININE 1.11 mg/dL (0.7-1.3); TOTAL PROTEIN 7.8 g/dL (6.4-8.2); TROPONIN I < 0.015 ng/mL (0.000-0.045)
[2020-12-13] MEDS ORDERED: FAMOTIDINE 20 MG/2 ML ONE (19:38)
[2020-12-13] MEDS ORDERED: PROMETHAZINE 25 MG/ML, 1ML ONE (20:23)
[2020-12-13] MEDS ORDERED: HYDROmorphone 1 MG/ML, 1ML INJ ONE (20:24)
[2020-12-13] MEDS ORDERED: HYDROmorphone 2 MG/ML, 1ML IVPush ONE (20:30)
[2020-12-13] MEDS ORDERED: PROMETHAZINE 25 MG/ML, 1ML IM ONE (20:30)
[2020-12-13 20:32] VITALS: BP 124/81
== END 2020-12-13 20:48 | disposition home or self-care (01) ==
LOC: ED 19:09
DX: G89.29 Other chronic pain (principal); R11.2 Nausea with vomiting, unspecified; R10.84 Generalized abdominal pain; K21.9 Gastro-esophageal reflux disease without esophagitis; E11.9 Type 2 diabetes mellitus without complications; Z90.49 Acquired absence of other specified parts of digestive tract
CPT/HCPCS: 36415; 71045; 80053; 83690; 84484; 85025; 93005; 96361; 96372; 96374; 96375; 99285; J1170; J2405; J2550; J7030

== ENCOUNTER 2020-12-15 00:36 | Emergency (ER) | payer MEDICAID ==
[~2020-12-15] VITALS: Ht 170.2 cm; Wt 121.7 kg
[2020-12-15] MEDS ORDERED: HYDR4TAB48 PO (01:12)
[2020-12-15] MEDS ORDERED: ONDA4TAB7 PO (01:15)
[2020-12-15] MEDS ORDERED: SITA100T PO (01:15)
[2020-12-15] MEDS ORDERED: FAMO-79 PO (01:16)
[2020-12-15] MEDS ORDERED: METOCLOPRAMIDE 5 MG/ML, 2ML IVPush ONE (01:30)
[2020-12-15] MEDS ORDERED: SODIUM CHLORIDE 0.9% 1,000ML IVBOLUS ONE (01:30)
[2020-12-15] MEDS ORDERED: HYDROmorphone 1 MG/ML, 1ML INJ ONE ×2 (01:56→03:37)
[2020-12-15] MEDS ORDERED: METOCLOPRAMIDE 5 MG/ML, 2ML ONE (01:56)
[2020-12-15 01:58] LABS: BASOPHILS % (AUTO) 1 % (0-1); EOSINOPHILS % (AUTO) 2 % (1-7); LYMPHOCYTES % (AUTO) 24 % (22-44); MEAN CORPUSCULAR HEMOGLOBIN 27.3 pg (27.5-34.5); MEAN CORPUSCULAR HGB CONC 33.8 g/dL (33.2-36.2); MEAN PLATELET VOLUME 8.4 fL (7.4-10.4); MONOCYTES % (AUTO) 8 % (2-9); NEUTROPHILS % (AUTO) 66 % (42-75); PLATELET COUNT 305 x10^3/uL (130-400); RED BLOOD COUNT 5.53 x10^6/uL (4.38-5.82); RED CELL DISTRIBUTION WIDTH 13.9 % (9.4-14.8)
[2020-12-15 01:59] LABS: MD NO
[2020-12-15] MEDS: HYDROmorphone 2 MG/ML, 1ML IVPush PRN ×2 (01:59→03:46)
[2020-12-15 02:03] LABS: ALANINE AMINOTRANSFERASE 39 U/L (12-78); ALBUMIN 3.1 g/dL (3.4-5.0); ANION GAP 8 mmol/L (5-15); CALCIUM 9.1 mg/dL (8.5-10.1); CHLORIDE 106 mmol/L (98-107); CREATININE 0.97 mg/dL (0.7-1.3)
[2020-12-15 02:08] LABS: ALKALINE PHOSPHATASE 75 U/L (45-117); BILIRUBIN,TOTAL 0.3 mg/dL (0.2-1.0); TOTAL PROTEIN 8.2 g/dL (6.4-8.2); TROPONIN I < 0.015 ng/mL (0.000-0.045)
--- NOTE | 2020-12-15 02:09 | NUR ---
PATIENT REPORTS NO PAIN ON FIRST EXAM. WHEN RN IN TO PLACE IV, PATIENT ASKED "IM GOING TO GET MY DILAUDID RIGHT?". RN RE-STATED PATIENT'S REPORT OF NO PAIN OTHER THAN PAIN WITH VOMITING/DRY HEAVING. PATIENT STATES "NO IM IN A TON OF PAIN". PATIENT STARTS MOANING AND GUARDING ABDOMEN. IN NAD. SAFETY MAINTAINED
--- NOTE | 2020-12-15 03:13 | NUR ---
Dr Vanegas to reeval then last dose pain meds and discharge.
[2020-12-15] MEDS ORDERED: PROMETHAZINE 25 MG/ML, 1ML IM ONE (03:30)
[2020-12-15] MEDS ORDERED: PROMETHAZINE 25 MG/ML, 1ML ONE (03:36)
--- NOTE | 2020-12-15 03:54 | NUR ---
PATIENT RESTING SITTING UP IN BED. IN NAD. REQUESTING DILAUDID. PATIENT STATES THAT HE DOES HAVE A RIDE HOME HE DID GET PHENERGAN IM WELL. GAIT STEADY. NO FURTHER NEEDS AT THIS TIME
[2020-12-15 04:16] VITALS: BP 128/90
--- NOTE | 2020-12-15 04:16 | NUR ---
TAXI VOUCHER GIVEN. PATIENT HAS STEADY GAIT WALKING TO REGISTRATION. ALL PERSONAL BELONGINGS WITH PATIENT ON DC. DISCHARGE INSTRUCTIONS REVIEWED WITH PATIENT. PRESCRIPTION DIRECTLY HANDED TO PATIENT.
== END 2020-12-15 04:20 | disposition home or self-care (01) ==
LOC: ED 02:19
DX: E11.43 Type 2 diabetes mellitus with diabetic autonomic (poly)neuropathy (principal); K31.84 Gastroparesis; G89.29 Other chronic pain; R10.31 Right lower quadrant pain; R10.13 Epigastric pain; R11.2 Nausea with vomiting, unspecified; K21.9 Gastro-esophageal reflux disease without esophagitis; Z90.49 Acquired absence of other specified parts of digestive tract
CPT/HCPCS: 74021; 80053; 82962; 83690; 84484; 85025; 93005; 96361; 96372; 96374; 96375; 96376; 99285; J1170; J2550; J2765; J7030